=== PATIENT | female | born 1955 | race Caucasian/White ===

== ENCOUNTER 2017-12-28 13:51 | Inpatient (IN) | payer OTHER ==
[~2017-12-28] VITALS: Ht 162.6 cm; Wt 137.8 kg
[2017-12-28] VITALS (10 sets, daily range): BP systolic 134–174; BP diastolic 52–134; PULSE 58–82; TEMP 36.6–36.9; O2SAT 81–100; Ht 162.6 cm; Wt 137.8 kg
[2017-12-28] MEDS ORDERED: ALBUT/IPRATROP 3MG/0.5MG NEB 3 ML VIAL INH ONE (14:15)
[2017-12-28] MEDS ORDERED: ASPI1TAB83 PO (14:24)
[2017-12-28] MEDS ORDERED: FRS/40 PO (14:24)
[2017-12-28] MEDS ORDERED: GLC/500 PO (14:24)
[2017-12-28] MEDS ORDERED: DLCSR180 PO (14:24)
[2017-12-28] MEDS ORDERED: IPRA1AER2 INH (14:24)
[2017-12-28] MEDS ORDERED: ASPI-435 (14:24)
--- NOTE | 2017-12-28 14:57 | DIAGNOSTIC IMAGING REPORT ---
R KNEE 1 OR 2 VIEWS ROUTINE CLINICAL HISTORY: Pt c/o Rt knee pain pain COMPARISON: None. DISCUSSION: Minimal degenerative change of all major joint compartments. No evidence for acute bony pathology. Cortical margins are intact. There is no evidence for soft tissue swelling. IMPRESSION: Minimal degenerative change. No acute bony antibody. The above report was generated using voice recognition software. It may contain grammatical, syntax or spelling errors. Electronically signed by: Jony Negro M.D. 12/28/2017 2:56 PM Dictated Date/Time: 12/28/2017 2:55 PM
--- NOTE | 2017-12-28 14:57 | DIAGNOSTIC IMAGING REPORT ---
CHEST ONE VIEW PORTABLE CLINICAL HISTORY: Shortness of breath COMPARISON STUDY: No previous studies for comparison. FINDINGS: The heart is enlarged. There is mild pulmonary vascular congestion. Pulmonary vasculature may be accentuated due to the patient's large body habitus. There is no lobar consolidation. There are no significant pleural effusions.[ IMPRESSION: Cardiomegaly and radiographic evidence of mild pulmonary vascular congestion. Electronically signed by: Bong Metz M.D. 12/28/2017 2:55 PM Dictated Date/Time: 12/28/2017 2:55 PM
--- NOTE | 2017-12-28 15:00 | DIAGNOSTIC IMAGING REPORT ---
RIGHT SHOULDER 3 VIEWS HISTORY: Pt c/o Rt shoulder pain COMPARISON: None. FINDINGS: There is no fracture or dislocation. Soft tissues are unremarkable. Small calcification at the distal supraspinatus tendon. The clavicle is intact. Mild AC joint arthrosis. IMPRESSION: No fracture or dislocation within the right shoulder. Supraspinatus calcific tendinitis. Electronically signed by: Aguilar Metz M.D. 12/28/2017 2:59 PM Dictated Date/Time: 12/28/2017 2:52 PM
[2017-12-28 15:09] LABS: ALBUMIN 3.4 gm/dl (3.4-5.0); CALCIUM 9.2 mg/dl (8.5-10.1); CREATININE 0.5 mg/dl (0.60-1.20); POTASSIUM 3.8 mmol/L (3.5-5.1)
--- NOTE | 2017-12-28 15:11 | EMERGENCY ROOM VISIT NOTE ---
History Report prepared by Melquiades: Christine Figueroa Under the Supervision of: Dr. Cristhian Meyer M.D. First contact with patient: 13:52 Chief Complaint: FALL Stated Complaint: CONFUSION/TREMORS/STOMACH ISSUES/ANXIETY History of Present Illness The patient is a 62 year old female who presents to the Emergency Room with complaints of persistent right shoulder and knee pain secondary to a fall that occurred prior to arrival. The patient was brought in by EMS. While talking to EMS and nursing staff, the patient stated that she is a smoker and has a history of COPD. The patient is on 2.5 liters of oxygen at home. Currently, she has an oxygen saturation of 80 and requires 5 liters of oxygen. The patient is also complaining of tremors. Source of History: patient, EMS, nursing staff History Limited By: AMS Onset: prior to arrival Position: shoulder (right), knee (right) Quality: other (right shoulder and right knee pain) Timing: other (persistent) Note: Associated symptoms includes: tremors Review of Systems See HPI for pertinent positives & negatives. A total of 10 systems reviewed and were otherwise negative. Past Medical & Surgical Medical Problems: (1) Acute and chronic respiratory failure with hypoxia (2) COPD (chronic obstructive pulmonary disease) Family History Patient reports no known family medical history. Limited due to patient's altered mental status. Social History Smoking Status: Current Every Day Smoker Smokeless Tobacco Use: Unknown Alcohol Use: none Limited due to patient's altered mental status. Current/Historical Medications Scheduled Aspirin (Aspirin), 81 MG PO DAILY Diltiazem HCl (Diltiazem HCl ER), 180 MG PO DAILY Furosemide (Lasix), 40 MG PO BID Ipratropium-Albuterol (Combivent Respimat), 1 PUFFS INH UD Metformin Hcl (Glucophage), 500 MG PO BID Miscellaneous Medications Aspirin (Aspirin 81) Allergies Coded Allergies: Amoxicillin (Unverified Allergy, Intermediate, HIVES, 12/28/17) BEE STING (Unverified Allergy, Mild, 12/28/17) Physical Exam Vital Signs Date Time Temp Pulse Resp B/P (MAP) Pulse Ox O2 Delivery O2 Flow Rate FiO2 12/28/17 16:23 66 100 60 12/28/17 15:53 68 17 147/67 100 Nebulizer 8.0 12/28/17 15:33 66 24 117/51 93 Nebulizer 8.0 12/28/17 14:35 67 18 94 Nasal Cannula 4.0 12/28/17 14:14 90 Nasal Cannula 4.0 12/28/17 14:00 75 12/28/17 13:53 37.3 75 16 180/83 80 Nasal Cannula 4.0 Physical Exam GENERAL: Awake, alert, well-appearing, in no acute distress HENT: Normocephalic, atraumatic. Oropharynx unremarkable. EYES: Normal conjunctiva. Sclera non-icteric. NECK: Supple. No nuchal rigidity. FROM. No JVD. RESPIRATORY: Lung sounds are distant. CARDIAC: Regular rate, normal rhythm. Extremities warm and well perfused. Pulses equal. ABDOMEN: Morbidly obese. Soft, non-distended. No tenderness to palpation. No rebound or guarding. No masses. RECTAL: Deferred. MUSCULOSKELETAL: Chest examination reveals no tenderness. The back is symmetrical on inspection without obvious abnormality. There is no CVA tenderness to palpation. No joint edema. LOWER EXTREMITIES: Chronic venous stasis changes bilateral to legs.Calves are equal size bilaterally and non-tender. No discoloration. NEURO: Normal sensorium. No sensory or motor deficits noted. SKIN: No rash or jaundice noted. Medical Decision & Procedures ER Provider Diagnostic Interpretation: Radiology results as stated below per my review and radiologist interpretation: CHEST ONE VIEW PORTABLE CLINICAL HISTORY: Shortness of breath COMPARISON STUDY: No previous studies for comparison. FINDINGS: The heart is enlarged. There is mild pulmonary vascular congestion. Pulmonary vasculature may be accentuated due to the patient's large body habitus. There is no lobar consolidation. There are no significant pleural effusions.[ IMPRESSION: Cardiomegaly and radiographic evidence of mild pulmonary vascular congestion. Electronically signed by: Bong Metz M.D. 12/28/2017 2:55 PM Dictated Date/Time: 12/28/2017 2:55 PM R KNEE 1 OR 2 VIEWS ROUTINE CLINICAL HISTORY: Pt c/o Rt knee pain pain COMPARISON: None. DISCUSSION: Minimal degenerative change of all major joint compartments. No evidence for acute bony pathology. Cortical margins are intact. There is no evidence for soft tissue swelling. IMPRESSION: Minimal degenerative change. No acute bony antibody. The above report was generated using voice recognition software. It may contain grammatical, syntax or spelling errors. Electronically signed by: Jony Negro M.D. 12/28/2017 2:56 PM Dictated Date/Time: 12/28/2017 2:55 PM RIGHT SHOULDER 3 VIEWS HISTORY: Pt c/o Rt shoulder pain COMPARISON: None. FINDINGS: There is no fracture or dislocation. Soft tissues are unremarkable. Small calcification at the distal supraspinatus tendon. The clavicle is intact. Mild AC joint arthrosis. IMPRESSION: No fracture or dislocation within the right shoulder. Supraspinatus calcific tendinitis. Electronically signed by: Aguilar Metz M.D. 12/28/2017 2:59 PM Dictated Date/Time: 12/28/2017 2:52 PM HEAD WITHOUT CONTRAST (CT) CLINICAL HISTORY: 62 years-old Female with Pt c/o fall. Acute head injury status post fall TECHNIQUE: Multiple axial CT images of the head were obtained without contrast. A dose lowering technique was utilized adhering to the principles of ALARA. CT DOSE: 3008.64 mGycm COMPARISON: CT head and brain MRI 08/28/2008. FINDINGS: Motion degraded exam. No acute intracranial hemorrhage, midline shift, intracranial mass, hydrocephalus, territorial ischemia or abnormal extra-axial collection. Calcifications of the falx cerebri are noted. Increased attenuation adjacent to peripheral left frontal lobe near the vertex as seen on images 25 and 26 of the axial series suggests artifact. The calvarium is intact. Mild polypoid mucosal thickening of the left maxillary sinus with mild ethmoid sinus disease. IMPRESSION: Motion degraded exam without acute intracranial abnormality or calvarial fracture. The above report was generated using voice recognition software. It may contain grammatical, syntax or spelling errors. Electronically signed by: Stan Galvan M.D. 12/28/2017 3:21 PM Dictated Date/Time: 12/28/2017 3:17 PM Laboratory Results 12/28/17 14:31 Red Blood Count 4.39, Mean Corpuscular Volume 104.6, Mean Corpuscular Hemoglobin 28.9, Mean Corpuscular Hemoglobin Concent 27.7, Mean Platelet Volume 12.6, Neutrophils (%) (Auto) 76.9, Lymphocytes (%) (Auto) 12.8, Monocytes (%) ( Auto) 9.0, Eosinophils (%) (Auto) 0.5, Basophils (%) (Auto) 0.3, Neutrophils # ( Auto) 5.67, Lymphocytes # (Auto) 0.94, Monocytes # (Auto) 0.66, Eosinophils # ( Auto) 0.04, Basophils # (Auto) 0.02 12/28/17 14:31 Test 12/28/17 13:55 12/28/17 14:31 12/28/17 16:09 Urine Color YELLOW Urine Appearance SL CLOUDY (CLEAR) Urine pH 6.5 (4.5-7.5) Urine Specific Cowen 1.015 (1.000-1.030) Urine Protein 1+ (NEG) Urine Glucose (UA) NEG (NEG) Urine Ketones NEG (NEG) Urine Occult Blood TRACE (NEG) Urine Nitrite POS (NEG) Urine Bilirubin NEG (NEG) Urine Urobilinogen NEG (NEG) Urine Leukocyte Esterase NEG (NEG) Urine RBC 0-4 /hpf (0-4) Urine WBC 10-30 /hpf (0-5) Urine Epithelial Cells 5-10 /lpf (0-5) Urine Bacteria 4+ (NEG) Urine Opiates Screen NEG (NEG) Urine Methadone, Qualitative NEG (NEG) Urine Barbiturates NEG (NEG) Urine Phencyclidine (PCP) Level NEG (NEG) Ur Amphetamine/Methamphetamine NEG (NEG) MDMA (Ecstasy) Screen NEG (NEG) Urine Benzodiazepines Screen NEG (NEG) Urine Cocaine Metabolite NEG (NEG) Urine Marijuana (THC) NEG (NEG) White Blood Count 7.37 K/uL (4.8-10.8) Red Blood Count 4.39 M/uL (4.2-5.4) Hemoglobin 12.7 g/dL (12.0-16.0) Hematocrit 45.9 % (37-47) Mean Corpuscular Volume 104.6 fL (80-100) Mean Corpuscular Hemoglobin 28.9 pg (25-34) Mean Corpuscular Hemoglobin Concent 27.7 g/dl (32-36) Platelet Count 141 K/uL (130-400) Mean Platelet Volume 12.6 fL (7.4-10.4) Neutrophils (%) (Auto) 76.9 % Lymphocytes (%) (Auto) 12.8 % Monocytes (%) (Auto) 9.0 % Eosinophils (%) (Auto) 0.5 % Basophils (%) (Auto) 0.3 % Neutrophils # (Auto) 5.67 K/uL (1.4-6.5) Lymphocytes # (Auto) 0.94 K/uL (1.2-3.4) Monocytes # (Auto) 0.66 K/uL (0.11-0.59) Eosinophils # (Auto) 0.04 K/uL (0-0.5) Basophils # (Auto) 0.02 K/uL (0-0.2) RDW Standard Deviation 57.1 fL (36.4-46.3) RDW Coefficient of Variation 14.8 % (11.5-14.5) Immature Granulocyte % (Auto) 0.5 % Immature Granulocyte # (Auto) 0.04 K/uL (0.00-0.02) Anion Gap -2.0 mmol/L (3-11) Est Creatinine Clear Calc Drug Dose 171.0 ml/min Estimated GFR () 119.4 Estimated GFR (Non- 103.0 BUN/Creatinine Ratio 26.0 (10-20) Calcium Level 9.2 mg/dl (8.5-10.1) Total Bilirubin 0.5 mg/dl (0.2-1) Aspartate Amino Transf (AST/SGOT) 47 U/L (15-37) Alanine Aminotransferase (ALT/SGPT) 110 U/L (12-78) Alkaline Phosphatase 32 U/L (45-117) Total Creatine Kinase 81 U/L (26-192) Creatine Kinase MB 6.3 ng/ml (0.5-3.6) Creatine Kinase MB Ratio 7.8 (0-3.0) Troponin I 0.028 ng/ml (0-0.045) Pro-B-Type Natriuretic Peptide 1100 pg/ml (0-900) Total Protein 6.6 gm/dl (6.4-8.2) Albumin 3.4 gm/dl (3.4-5.0) Globulin 3.2 gm/dl (2.5-4.0) Albumin/Globulin Ratio 1.1 (0.9-2) Arterial Blood pH 7.22 (7.35-7.45) Arterial Blood Partial Pressure CO2 135 mmHg (35-46) Arterial Blood Partial Pressure O2 164 mm/Hg (80-95) Arterial Blood HCO3 54 mmol/L (19-24) Arterial Blood Oxygen Saturation 98.7 % (90-95) Arterial Blood Base Excess 20.4 mEq/L (-9-1.8) Arterial Blood Gas Delivery 100% BIPAP Daniel Test POS (POS) Labs reviewed by ED physician. Medications Administered Medications (Trade) Dose Ordered Sig/Yaya Route Start Time Stop Time Status Last Admin Dose Admin Albuterol/ Ipratropium (Duoneb) 12 ml ONE ONCE INH 12/28/17 14:15 12/28/17 14:16 DC 12/28/17 14:34 12 ML Methylprednisolone Sodium Succinate (Solu-Medrol IV) 60 mg NOW STAT IV 12/28/17 15:25 12/28/17 15:26 DC 12/28/17 15:40 60 MG Magnesium Sulfate (Magnesium Sulfate 1gm / D5W) 1 gm NOW STAT IV 12/28/17 15:45 12/28/17 15:47 DC 12/28/17 15:51 1 GM ECG Per My Interpretation Indication: SOB/dyspnea Rate (beats per minute): 64 Rhythm: atrial fibrillation Findings: other (no ST elevations or depression. ) ED Course 1405: Past medical records reviewed. The patient was evaluated in room C5. A complete history and physical examination was performed. 1415: Ordered Duoneb 12ml INH. 1525: Ordered Solu-Medrol IV 60mg IV. 1545: I reevaluated the patient, who is feeling somewhat better. Ordered Magnesium Sulfate 1gm IV. 1600: Ordered Ioversol 100ml IV. 1602: I discussed the patient's case with Meghan Horton PA-C. She has agreed to evaluate the patient for further management and care. 1604: Reevaluated the patient and updated her on the test findings and treatment plan. She verbalized complete agreement and understanding. Medical Decision Differential diagnosis: Etiologies such as infections, reactive airway disease, pneumonia, pneumothorax , COPD, CHF, cardiac ischemia, pulmonary embolism, musculoskeletal, gastrointestinal, as well as others were entertained. This is a 62-year-old female who presents the emergency department with increasing confusion that has been ongoing for the past several days. Patient reports she fell at home today was unable to get up. Upon arrival to the emergency department the patient is on 2.5 L of oxygen and is hypoxic. Her oxygen was initially bumped up to 4 L via nasal cannula. She was then placed on a breathing treatment. I am concerned that the patient keeps falling asleep and her CO2 is reflective of this. For this reason the patient was placed on BiPAP and magnesium and Solu-Medrol were started. I did discuss the case with the p d driver. An ABG was obtained. I also discussed the case with the hospitalist who agreed to admit the patient. Patient and family were in agreement with the treatment plan. Medication Reconcilliation Current Medication List: was personally reviewed by me Blood Pressure Screening Patient's blood pressure: Normal blood pressure Blood pressure disposition: Did not require urgent referral Consults Time Called: 1602 Consulting Physician: Meghan Horton PA-C Returned Call: 1602 I discussed the patient's case with Meghan Horton PA-C. She has agreed to evaluate the patient for further management and care. Impression Primary Impression: Acute and chronic respiratory failure with hypoxia Additional Impression: Fall Critical Care I have personally spent greater than 30 minutes of critical care time in the direct management of this patient. This includes bedside care, interpretation of diagnostic studies, and testing, discussion with consultants, patient, and family members, and other required patient management activities. This 30 minutes is in excess of all separately billable procedures. Scribe Attestation The scribe's documentation has been prepared under my direction and personally reviewed by me in its entirety. I confirm that the note above accurately reflects all work, treatment, procedures, and medical decision making performed by me. Departure Information Dispostion Being Evaluated By Hospitalist Referrals No Doctor, Assigned (PCP) Forms HOME CARE DOCUMENTATION FORM, IMPORTANT VISIT INFORMATION Patient Instructions [facility] Problem Qualifiers Additional Impression: Fall Encounter type: initial encounter Qualified Codes: W19.XXXA - Unspecified fall, initial encounter
[2017-12-28 15:14] LABS: CKMB 6.3 ng/ml (0.5-3.6); TOTAL PROTEIN 6.6 gm/dl (6.4-8.2)
--- NOTE | 2017-12-28 15:22 | DIAGNOSTIC IMAGING REPORT ---
HEAD WITHOUT CONTRAST (CT) CLINICAL HISTORY: 62 years-old Female with Pt c/o fall. Acute head injury status post fall TECHNIQUE: Multiple axial CT images of the head were obtained without contrast. A dose lowering technique was utilized adhering to the principles of ALARA. CT DOSE: 3008.64 mGycm COMPARISON: CT head and brain MRI 08/28/2008. FINDINGS: Motion degraded exam. No acute intracranial hemorrhage, midline shift, intracranial mass, hydrocephalus, territorial ischemia or abnormal extra-axial collection. Calcifications of the falx cerebri are noted. Increased attenuation adjacent to peripheral left frontal lobe near the vertex as seen on images 25 and 26 of the axial series suggests artifact. The calvarium is intact. Mild polypoid mucosal thickening of the left maxillary sinus with mild ethmoid sinus disease. IMPRESSION: Motion degraded exam without acute intracranial abnormality or calvarial fracture. The above report was generated using voice recognition software. It may contain grammatical, syntax or spelling errors. Electronically signed by: Stan Galvan M.D. 12/28/2017 3:21 PM Dictated Date/Time: 12/28/2017 3:17 PM
[2017-12-28] MEDS ORDERED: METHYLPREDNISOLONE 125 MG VIAL IV STA (15:25)
[2017-12-28 15:40] LABS: BASO % 0.3 %; BASO ABS # 0.02 K/uL (0-0.2); EOS % 0.5 %; EOS ABS # 0.04 K/uL (0-0.5); HEMATOCRIT 45.9 % (37-47); HEMOGLOBIN 12.7 g/dL (12.0-16.0); IG# 0.04 K/uL (0.00-0.02); LYMPH % 12.8 %; LYMPH ABS # 0.94 K/uL (1.2-3.4); MEAN CELL VOLUME 104.6 fL (80-100); MEAN CORPUSCULAR HEMOGLOBIN 28.9 pg (25-34); MEAN CORPUSCULAR HGB CONC 27.7 g/dl (32-36); MEAN PLATELET VOLUME 12.6 fL (7.4-10.4); MONO ABS # 0.66 K/uL (0.11-0.59); NEUT % 76.9 %; NEUT ABS # 5.67 K/uL (1.4-6.5); PLATELET COUNT 141 K/uL (130-400); RED CELL DISTRIBUTION WIDTH CV 14.8 % (11.5-14.5); RED CELL DISTRIBUTION WIDTH SD 57.1 fL (36.4-46.3); WHITE BLOOD COUNT 7.37 K/uL (4.8-10.8)
[2017-12-28] MEDS ORDERED: MAGNESIUM SULFATE 1GM / D5W 1 GM BAG IV STA (15:45)
[2017-12-28] MEDS ORDERED: OPTIRAY 320 IV PRN (16:00)
--- NOTE | 2017-12-28 16:44 | History and Physical ---
History & Physical Date & Time of Service: Dec 28, 2017 at 16:44 Chief Complaint: Confusion/Tremors/Stomach Issues/Anxiety Primary Care Physician: No Doctor, Assigned History of Present Illness Source: hospital records, other (Discussion with ED Provider - Dr. Meyer) Ms. Torres is a 62 y/o female with PMHx of T2DM, COPD, and Cardiovascular Conditions (HTN?) who presents to the ED by BLS for a fall 2/2 SOB that occurred earlier today. HPI solely obtained from ED note and ED provider. No previous admissions and no outpatient notes in [employer] and marked as unassigned. It appears patient presented by BLS with c/o R shoulder and knee pain after a fall. Fall is reported to be caused by her SOB. She has a history of COPD and utilizes 2.5 L NC continuously. Upon arrival she was 80% with 4 L NC. Reported tremors as well that may be acute vs chronic. Reporting some progressive confusion over the past couple days. Medications listed in system cannot be confirmed but suggests she is a diabetic, possibly HTN, possibly CHF? No tests in system to review. Patient is currently on BiPAP and moans and somewhat opens eyes to sternal rub. Past Medical/Surgical History Medical Problems: (1) Acute and chronic respiratory failure with hypoxia Family History FMHx cannot be obtained 2/2 being obtunded Social History Smoking Status: Current Every Day Smoker Allergies Coded Allergies: Amoxicillin (Unverified Allergy, Intermediate, HIVES, 12/28/17) BEE STING (Unverified Allergy, Mild, 12/28/17) Home Medications Scheduled Aspirin (Aspirin), 81 MG PO DAILY Diltiazem HCl (Diltiazem HCl ER), 180 MG PO DAILY Furosemide (Lasix), 40 MG PO BID Ipratropium-Albuterol (Combivent Respimat), 1 PUFFS INH UD Metformin Hcl (Glucophage), 500 MG PO BID Miscellaneous Medications Aspirin (Aspirin 81) Review of Systems ROS cannot be obtained 2/2 being obtunded Physical Exam Vital Signs Date Time Temp Pulse Resp B/P (MAP) Pulse Ox O2 Delivery O2 Flow Rate FiO2 12/28/17 16:23 66 100 60 12/28/17 15:53 68 17 147/67 100 Nebulizer 8.0 12/28/17 15:33 66 24 117/51 93 Nebulizer 8.0 12/28/17 14:35 67 18 94 Nasal Cannula 4.0 12/28/17 14:14 90 Nasal Cannula 4.0 12/28/17 14:00 75 12/28/17 13:53 37.3 75 16 180/83 80 Nasal Cannula 4.0 General Appearance: no apparent distress, + obese Head: normocephalic, atraumatic Neck: supple, no JVD, trachea midline Respiratory/Chest: + respiratory distress (on Bipap), + decreased breath sounds Cardiovascular: regular rate, rhythm, no gallop, no murmur, + pertinent finding (however heart sounds are distant) Abdomen/GI: normal bowel sounds, non tender (no grimacing with palpation), soft Extremities/Musculoskelatal: + swelling (1+ pitting edema b/l legs) Neurologic/Psych: + pertinent finding (obtunded) Skin: normal color, warm/dry Diagnostics Laboratory Results Results Past 24 Hours Test 12/28/17 13:55 12/28/17 14:31 12/28/17 16:09 Range/Units Urine Color YELLOW Urine Appearance SL CLOUDY CLEAR Urine pH 6.5 4.5-7.5 Urine Specific [place] 1.015 1.000-1.030 Urine Protein 1+ NEG Urine Glucose (UA) NEG NEG Urine Ketones NEG NEG Urine Occult Blood TRACE NEG Urine Nitrite POS NEG Urine Bilirubin NEG NEG Urine Urobilinogen NEG NEG Urine Leukocyte Esterase NEG NEG Urine RBC 0-4 0-4 /hpf Urine WBC 10-30 0-5 /hpf Urine Epithelial Cells 5-10 0-5 /lpf Urine Bacteria 4+ NEG White Blood Count 7.37 4.8-10.8 K/uL Red Blood Count 4.39 4.2-5.4 M/uL Hemoglobin 12.7 12.0-16.0 g/dL Hematocrit 45.9 37-47 % Mean Corpuscular Volume 104.6 80-100 fL Mean Corpuscular Hemoglobin 28.9 25-34 pg Mean Corpuscular Hemoglobin Concent 27.7 32-36 g/dl Platelet Count 141 130-400 K/uL Mean Platelet Volume 12.6 7.4-10.4 fL Neutrophils (%) (Auto) 76.9 % Lymphocytes (%) (Auto) 12.8 % Monocytes (%) (Auto) 9.0 % Eosinophils (%) (Auto) 0.5 % Basophils (%) (Auto) 0.3 % Neutrophils # (Auto) 5.67 1.4-6.5 K/uL Lymphocytes # (Auto) 0.94 1.2-3.4 K/uL Monocytes # (Auto) 0.66 0.11-0.59 K/uL Eosinophils # (Auto) 0.04 0-0.5 K/uL Basophils # (Auto) 0.02 0-0.2 K/uL RDW Standard Deviation 57.1 36.4-46.3 fL RDW Coefficient of Variation 14.8 11.5-14.5 % Immature Granulocyte % (Auto) 0.5 % Immature Granulocyte # (Auto) 0.04 0.00-0.02 K/uL Sodium Level 138 136-145 mmol/L Potassium Level 3.8 3.5-5.1 mmol/L Chloride Level 87 98-107 mmol/L Carbon Dioxide Level 53 21-32 mmol/L Anion Gap -2.0 3-11 mmol/L Blood Urea Nitrogen 13 7-18 mg/dl Creatinine 0.50 0.60-1.20 mg/dl Est Creatinine Clear Calc Drug Dose 171.0 ml/min Estimated GFR () 119.4 Estimated GFR (Non- 103.0 BUN/Creatinine Ratio 26.0 10-20 Random Glucose 95 70-99 mg/dl Calcium Level 9.2 8.5-10.1 mg/dl Total Bilirubin 0.5 0.2-1 mg/dl Aspartate Amino Transf (AST/SGOT) 47 15-37 U/L Alanine Aminotransferase (ALT/SGPT) 110 12-78 U/L Alkaline Phosphatase 32 45-117 U/L Total Creatine Kinase 81 26-192 U/L Creatine Kinase MB 6.3 0.5-3.6 ng/ml Creatine Kinase MB Ratio 7.8 0-3.0 Troponin I 0.028 0-0.045 ng/ml Pro-B-Type Natriuretic Peptide 1100 0-900 pg/ml Total Protein 6.6 6.4-8.2 gm/dl Albumin 3.4 3.4-5.0 gm/dl Globulin 3.2 2.5-4.0 gm/dl Albumin/Globulin Ratio 1.1 0.9-2 Arterial Blood pH 7.22 7.35-7.45 Arterial Blood Partial Pressure CO2 135 35-46 mmHg Arterial Blood Partial Pressure O2 164 80-95 mm/Hg Arterial Blood HCO3 54 19-24 mmol/L Arterial Blood Oxygen Saturation 98.7 90-95 % Arterial Blood Base Excess 20.4 -9-1.8 mEq/L Arterial Blood Gas Delivery 100% BIPAP Daniel Test POS POS Microbiology Results 12/28/17 Urine Culture, Received Pending Diagnostic Radiology RIGHT SHOULDER 3 VIEWS FINDINGS: There is no fracture or dislocation. Soft tissues are unremarkable. Small calcification at the distal supraspinatus tendon. The clavicle is intact. Mild AC joint arthrosis. IMPRESSION: No fracture or dislocation within the right shoulder. Supraspinatus calcific tendinitis. R KNEE 1 OR 2 VIEWS ROUTINE DISCUSSION: Minimal degenerative change of all major joint compartments. No evidence for acute bony pathology. Cortical margins are intact. There is no evidence for soft tissue swelling. IMPRESSION: Minimal degenerative change. No acute bony antibody. HEAD WITHOUT CONTRAST (CT) FINDINGS: Motion degraded exam. No acute intracranial hemorrhage, midline shift, intracranial mass, hydrocephalus, territorial ischemia or abnormal extra-axial collection. Calcifications of the falx cerebri are noted. Increased attenuation adjacent to peripheral left frontal lobe near the vertex as seen on images 25 and 26 of the axial series suggests artifact. The calvarium is intact. Mild polypoid mucosal thickening of the left maxillary sinus with mild ethmoid sinus disease. IMPRESSION: Motion degraded exam without acute intracranial abnormality or calvarial fracture. CHEST ONE VIEW PORTABLE FINDINGS: The heart is enlarged. There is mild pulmonary vascular congestion. Pulmonary vasculature may be accentuated due to the patient's large body habitus. There is no lobar consolidation. There are no significant pleural effusions.[ IMPRESSION: Cardiomegaly and radiographic evidence of mild pulmonary vascular congestion EKG Poor data quality, interpretation may be adversely affected Probable Sinus rhythm Nonspecific T wave abnormality Abnormal ECG When compared with ECG of 28-AUG-2008 12:46, Artifact is now present Confirmed by JUAN WISDOM ([id number]) on 12/28/2017 4:37:38 PM Impression Assessment and Plan Ms. Torres is a 62 y/o female with PMHx of T2DM, COPD, and Cardiovascular Conditions (HTN?) who presents to the ED by BLS for a fall 2/2 SOB that occurred earlier today. HPI solely obtained from ED note and ED provider Metabolic Encephalopathy 2/2 Likely Hypoxia vs Other - Appears she was A&O upon arrival however during my assessment she is minimally responsive. Requiring BiPAP - Appears to possibly have a UTI but afebrile and without leukocytosis at this time; will obtain drug screen to r/o as possible cause - Could consider implemeting Levaquin as this could cover urine source as well as coverage for respiratory Acute on Chronic Respiratory Failure with Hypoxia and Respiratory Acidosis: Baseline 2.5 L NC - ABG reveals a compensating respiratory acidosis - Received Solu-Medrol and Duoneb in ED and is currently on BiPAP - CXR with mild pulmonary vascular congestion with CTA to R/O PE pending - Consult intensivists - discussed with Dr. Honeycutt - possibl need for intubation pending improvement in NIV support COPD Possible Exacerbation vs Obesity Hypoventilation Syndrome vs Mild CHF vs Mixed: - Hard to fully assess lung exam as she largely sounds diminished but cannot follow commands - Patient is morbidly obese and would suspect this is contributing to some extent of today's presentation - Will initiate Solu-Medrol 60 mg IV q8H and Levaquin 500 mg daily; Duonebs BLAKE - can be adjusted as deemed fit but ICU team T2DM: - Hold Metformin and cover with SSI HTN: - Unsure of her actual medications and no pharamacy listed - Continue to monitor Code Status: FULL RESUSCITATION - Cannot be Obtained Disposition: - Acutely ill - unsure of needs on D/C CCT of 60 minutes. This includes review of chart and attempts at outpatient review, discussion with ED and intensivists, evaluation of patient, intervention , and documentation. Resident Physician Supervision Note: I was present with Meghan BUCKNER during the history and exam. I discussed the case with the PA and agree with the findings and plan as documented in the note. Any exceptions or clarifications are listed here: 62 y/o F Hx obesity hypoventilation, COPD, DM, HTN - presented initially with SOB - resp status deteriorated on arrival to the ER requiring BiPAP - pt was poorly responsive for a period - significant hypercarbia and mild hypoxia noted on ABG - she had been exhibiting some improvement upon transfer to the ICU. OE Somnolent, morbidly obese female - appears mildly distressed S1,2 R faint Lung exam is limited due to lrg air noises and habitus - no audible crackles NT, ND + 3+ edema BL - stasis changes of LEs Poorly responsive om admission - moves all extrems P: Placed on BiPAP for transfer to ICU Will treat for presumed COPD exacerbation wit Nebs, steroids Will consider intubation if ABG/mentation does not improve with BiPAP Pt's volume status is not clear - we would also consider diuresis without improvement with resp modalities alone Discussed with ER attending and Supervisor Documented By: Rolando Hill Resuscitation Status VTE Prophylaxis Will order VTE Prophylaxis: Yes Note Total Time: Critical Care 30 - 74 minutes
[2017-12-28] MEDS ORDERED: GLUCOSE 40% GEL 15 GM TUBE PO PRN (16:45)
[2017-12-28] MEDS ORDERED: DEXTROSE 50% 50 ML SYR IV PRN (16:45)
[2017-12-28] MEDS ORDERED: GLUCOSE 10 TABS/TUBE PO PRN (16:45)
[2017-12-28] MEDS ORDERED: ICU PROTOCOL FOR HYPERGLYCEMIA PRN (16:45)
[2017-12-28] MEDS ORDERED: GLUCAGON FOR INJ 1 MG VIAL SQ PRN (16:45)
--- NOTE | 2017-12-28 18:36 | Critical Care Consultation ---
Critical Care Consultation Date of Consultation: Dec 28, 2017. Attending Physician: Rolando Hill M.D. Reason for Consultation: Acute on chronic hypercapnic respiratory failure History of Present Illness Dear Meghan: Thank you for your kind referral of Mrs. Torres to critical care service. This is 62-year-old female with history of morbid obesity, obesity hypoventilation syndrome, COPD, diabetes, hypertension, has been lately having tremor and she did sustain a fall at home presented to our institution after she fell. In the ED the patient was found to be dozing and confused, the patient underwent a workup which revealed sodium bicarb of 53 and had an ABG drawn which showed PCO2 of 135. Her pH however maintained at 7.22. The patient apparently has been taken also diuretics at home. The patient brought to the ICU due to acute on chronic hypercapnic respiratory failure. When I interviewed the patient, she was barely arousable but she was able to open her eyes answer questions however she goes back to sleep again. I kept her on the BiPAP at that time and decrease her FiO2 to 30% only and keep her O2 sat in the range of 85%. The patient is definitely chronic retainer of CO2. The review of system was not obtainable on this patient. In review of her data the patient noted to have pulmonary vascular congestion also on the chest x- ray. I could not appreciate any intracranial catastrophe on the head CT that was done on admission. Social History Smoking Status: Current Every Day Smoker Allergies Coded Allergies: Amoxicillin (Unverified Allergy, Intermediate, HIVES, 12/28/17) BEE STING (Unverified Allergy, Mild, 12/28/17) Home Medications Scheduled Aspirin (Aspirin), 81 MG PO DAILY Diltiazem HCl (Diltiazem HCl ER), 180 MG PO DAILY Furosemide (Lasix), 40 MG PO BID Ipratropium-Albuterol (Combivent Respimat), 1 PUFFS INH UD Metformin Hcl (Glucophage), 500 MG PO BID Miscellaneous Medications Aspirin (Aspirin 81) Current Inpatient Medications Current Inpatient Medications Medications (Trade) Dose Ordered Sig/Yaya Route Start Time Stop Time Status Last Admin Dose Admin Ioversol (Optiray 320) 100 ml UD PRN IV 12/28/17 16:00 01/01/18 15:59 Miscellaneous Information (Icu Protocol For Hyperglycemia) 1 ea PRN PRN N/A 4/18/18 16:45 12/30/17 16:44 Insulin Aspart (novoLOG ASPART) SLIDING SCALE If C... ACHS SC 12/28/17 21:00 01/27/18 20:59 Glucose (Glucose 40% Gel) 15-30 GRAMS 15 GRAMS... UD PRN PO 12/28/17 16:45 01/27/18 16:44 Glucose (Glucose Chew Tab) 4-8 Tablets 4 Tabl... UD PRN PO 12/28/17 16:45 01/27/18 16:44 Dextrose (Dextrose 50% 50ML Syringe) 25-50ML OF 50% DW IV FOR... UD PRN IV 12/28/17 16:45 01/27/18 16:44 Glucagon (Glucagon Inj) 1 mg UD PRN SQ 12/28/17 16:45 01/27/18 16:44 Albuterol/ Ipratropium (Duoneb) 3 ml Q6R NEB 12/28/17 21:00 01/27/18 20:59 Methylprednisolone Sodium Succinate 60 mg/Syringe 0.96 ml @ 1.5 mls/min Q8H IV 12/28/17 22:00 01/27/18 21:59 Levofloxacin 500 mg/Prmx 100 ml @ 100 mls/hr Q24H IV 12/28/17 18:30 01/02/18 18:29 Review of Systems Review of system was not obtainable, the patient was complaining of pain but without any specific area. Due to her somnolence I could not obtain a full review of system. Physical Exam Date Time Temp Pulse Resp B/P (MAP) Pulse Ox O2 Delivery O2 Flow Rate FiO2 12/28/17 18:13 82 17 147/67 98 12/28/17 18:12 82 94 60 12/28/17 17:03 68 12/28/17 16:23 66 100 60 12/28/17 15:53 68 17 147/67 100 Nebulizer 8.0 12/28/17 15:33 66 24 117/51 93 Nebulizer 8.0 12/28/17 14:35 67 18 94 Nasal Cannula 4.0 12/28/17 14:14 90 Nasal Cannula 4.0 12/28/17 14:00 75 12/28/17 13:53 37.3 75 16 180/83 80 Nasal Cannula 4.0 General Appearance: no apparent distress Eyes: PERRLA ENT: normal throat exam Neck: trachea midline, no stridor Respiratory: other (Distant and diminished breath sounds.) Cardiovasular: regular rate/rhythm, normal S1S2, no M/G/R, no murmur, other ( Slightly bradycardic.) Abdomen: non tender, no masses Upper Extremities: edema Neuro: lethargic Psychiatric: other (Cannot be assessed) Laboratory Results Last 24 Hours Test 12/28/17 13:55 12/28/17 14:31 12/28/17 16:09 Urine Color YELLOW Urine Appearance SL CLOUDY Urine pH 6.5 Urine Specific [place] 1.015 Urine Protein 1+ Urine Glucose (UA) NEG Urine Ketones NEG Urine Occult Blood TRACE Urine Nitrite POS Urine Bilirubin NEG Urine Urobilinogen NEG Urine Leukocyte Esterase NEG Urine RBC 0-4 /hpf Urine WBC 10-30 /hpf Urine Epithelial Cells 5-10 /lpf Urine Bacteria 4+ White Blood Count 7.37 K/uL Red Blood Count 4.39 M/uL Hemoglobin 12.7 g/dL Hematocrit 45.9 % Mean Corpuscular Volume 104.6 fL Mean Corpuscular Hemoglobin 28.9 pg Mean Corpuscular Hemoglobin Concent 27.7 g/dl Platelet Count 141 K/uL Mean Platelet Volume 12.6 fL Neutrophils (%) (Auto) 76.9 % Lymphocytes (%) (Auto) 12.8 % Monocytes (%) (Auto) 9.0 % Eosinophils (%) (Auto) 0.5 % Basophils (%) (Auto) 0.3 % Neutrophils # (Auto) 5.67 K/uL Lymphocytes # (Auto) 0.94 K/uL Monocytes # (Auto) 0.66 K/uL Eosinophils # (Auto) 0.04 K/uL Basophils # (Auto) 0.02 K/uL RDW Standard Deviation 57.1 fL RDW Coefficient of Variation 14.8 % Immature Granulocyte % (Auto) 0.5 % Immature Granulocyte # (Auto) 0.04 K/uL Sodium Level 138 mmol/L Potassium Level 3.8 mmol/L Chloride Level 87 mmol/L Carbon Dioxide Level 53 mmol/L Anion Gap -2.0 mmol/L Blood Urea Nitrogen 13 mg/dl Creatinine 0.50 mg/dl Est Creatinine Clear Calc Drug Dose 171.0 ml/min Estimated GFR () 119.4 Estimated GFR (Non- 103.0 BUN/Creatinine Ratio 26.0 Random Glucose 95 mg/dl Calcium Level 9.2 mg/dl Total Bilirubin 0.5 mg/dl Aspartate Amino Transf (AST/SGOT) 47 U/L Alanine Aminotransferase (ALT/SGPT) 110 U/L Alkaline Phosphatase 32 U/L Total Creatine Kinase 81 U/L Creatine Kinase MB 6.3 ng/ml Creatine Kinase MB Ratio 7.8 Troponin I 0.028 ng/ml Pro-B-Type Natriuretic Peptide 1100 pg/ml Total Protein 6.6 gm/dl Albumin 3.4 gm/dl Globulin 3.2 gm/dl Albumin/Globulin Ratio 1.1 Arterial Blood pH 7.22 Arterial Blood Partial Pressure CO2 135 mmHg Arterial Blood Partial Pressure O2 164 mm/Hg Arterial Blood HCO3 54 mmol/L Arterial Blood Oxygen Saturation 98.7 % Arterial Blood Base Excess 20.4 mEq/L Arterial Blood Gas Delivery 100% BIPAP Daniel Test POS Diagnostic Results ABG was consistent with acute on chronic hypercapnic respiratory failure, chest x-ray with pulmonary vascular congestion. The rest of her labs are within acceptable limits. Assessment & Plan 1. Acute on chronic hypercapnic respiratory failure. It could be medications related however I do not have her home medications. Apparently the patient was taking diuretics at home. 2. COPD exacerbation is highly likely in this patient who had a diagnosis. 3. History of hypertension hyperlipidemia. 4. History of a tremor, per patient, I could not confirm it. 5. Recent fall without sustaining any fractures. 6. Obesity hypoventilation syndrome, not sure if the patient has been treated with BiPAP at home. This is the first visit of this patient to our institution. Plan: 1. We will obtain old records from her primary care physician if possible. 2. I will keep the patient on the BiPAP for now. 3. Repeat the ABG. 4. If the patient continued to be somnolent with rising PCO2, the patient would benefit from intubation. 5. Glucose control. 6. Agree with the steroids and adjust the dose to 40 mg IV every 6 hours. 7. The patient with pulmonary vascular congestion and edema in the periphery however she does have significant CO2 retention, I would be cautiously administering diuretics, and I will try to avoid Diamox. 8. Continue with DVT prophylaxis. 9. Keep the patient n.p.o. 10. If the family at the bedside at any given time will discuss the case with them and update them. 11. I will hold off on any further narcotics. 12. Case discussed with the staff and details. Critical care time spent with the patient was 45 minutes excluding procedure time.
[2017-12-28] MEDS: LEVOFLOXACIN / D5W 500 MG in PREMIXED IN D5W 100 ML IV SCH (18:39)
[2017-12-28] MEDS: ALBUT/IPRATROP 3MG/0.5MG NEB 3 ML VIAL NEB SCH (19:02)
[2017-12-28] MEDS: INSULIN ASPART 100 UNITS/ML 3 ML PEN SC SCH (21:00)
[2017-12-28] MEDS ORDERED: METHYLPREDNISOLONE IV 60 MG in SYRINGE 0 ML IV SCH (22:00)
[2017-12-29] VITALS (31 sets, daily range): BP systolic 109–162; BP diastolic 46–93; PULSE 63–84; TEMP 36.3–37.7; O2SAT 83–96
[2017-12-29] MEDS: METHYLPREDNISOLONE IV 40 MG in SYRINGE 0 ML IV SCH ×5 (00:05→23:51)
[2017-12-29] MEDS: ALBUT/IPRATROP 3MG/0.5MG NEB 3 ML VIAL NEB SCH ×4 (02:12→19:10)
--- NOTE | 2017-12-29 03:39 | Critical Care Progress Note ---
Critical Care Progress Note Date of Service Dec 29, 2017. Critical Care Progress Note I was approached by nursing staff as the patient was having episodes of persistent hypoxia with SPO2 saturations in the low 80s. Patient was independently evaluated by myself. She had equal breath sounds bilaterally. She was drawing tidal volumes in the 300s, however when she was awoken, she would drill larger tidal volumes in the thousands. Per her current settings, the patient is on a BiPAP with 18/8. Patient did arouse with painful stimuli as well as with loudly stating her name. At this point, I did repeat ABG for evaluation of oxygenation/ventilation status while on BiPAP. In addition, adjustments were made to the BiPAP to increase the FiO2 to 50% as she was already with large inspiratory pressures and did not wish to adjust this for risk of barotrauma. This did seem to improve the patient's oxygenation. ABG demonstrates no significant change in CO2, however her SPO2 has improved as has the pH itself. No other alterations of the BiPAP settings were made at this point. I will order repeat ABG in the morning as long as the patient continues to have an uneventful night. I have personally spent 30 minutes of critical care time in the direct management of this patient. This is a life/limb threatening event. This includes time spent evaluating patient, direct bedside care, chart review, placing orders, interpretation of diagnostic studies, discussion with consultants, patient, and family members, as well as other required patient management activities. This time is exclusive of all separately billable procedures, and teaching time and separate from and in addition to any other critical care service time.
[2017-12-29 05:25] LABS: ALBUMIN 3.2 gm/dl (3.4-5.0); ALT/SGPT 112 U/L (12-78); AST/SGOT 40 U/L (15-37); BLOOD UREA NITROGEN 12 mg/dl (7-18); CALCIUM 9.2 mg/dl (8.5-10.1); CREATININE 0.55 mg/dl (0.60-1.20); GLUCOSE 128 mg/dl (70-99); POTASSIUM 4.3 mmol/L (3.5-5.1); SODIUM 136 mmol/L (136-145)
[2017-12-29 05:28] LABS: ALKALINE PHOSPHATASE 34 U/L (45-117); PHOSPHORUS 3.4 mg/dl (2.5-4.9); TOTAL PROTEIN 6.9 gm/dl (6.4-8.2)
[2017-12-29 05:48] LABS: CARBON DIOXIDE 52 mmol/L (21-32)
[2017-12-29 05:56] LABS: HEMATOCRIT 45.9 % (37-47); HEMOGLOBIN 12.8 g/dL (12.0-16.0); IG# 0.04 K/uL (0.00-0.02); LYMPH % 9.5 %; LYMPH ABS # 0.49 K/uL (1.2-3.4); MEAN CELL VOLUME 102.7 fL (80-100); MEAN CORPUSCULAR HEMOGLOBIN 28.6 pg (25-34); MEAN CORPUSCULAR HGB CONC 27.9 g/dl (32-36); MONO % 2.5 %; MONO ABS # 0.13 K/uL (0.11-0.59); NEUT % 87.2 %; NEUT ABS # 4.52 K/uL (1.4-6.5); PLATELET COUNT 139 K/uL (130-400); WHITE BLOOD COUNT 5.18 K/uL (4.8-10.8)
[2017-12-29 08:16] LABS: HEMOGLOBIN A1C 5.9 % (4.5-5.6)
[2017-12-29] MEDS ORDERED: PHARMACY GLYCEMIC MGMT CONSULT SCH (08:28)
[2017-12-29] MEDS ORDERED: INSULIN GLARGINE SOLOSTAR 100 UNITS/ML 3 ML PEN SC SCH (09:00)
[2017-12-29] MEDS: INSULIN ASPART 100 UNITS/ML 3 ML PEN SC SCH ×4 (09:33→21:00)
--- NOTE | 2017-12-29 10:55 | ECHOCARDIOGRAM REPORT ---
*NOTICE TO RECEIVING [employer] This information is strictly Confidential and protected under [place] law. [place] law prohibits you from making any further disclosure of this information unless further disclosure is expressly permitted by the written consent of the person to whom it pertains or is authorized by law. A general authorization for the release of medical or other information is not sufficient for this purpose. Hospital accepts no responsibility if the information is made available to any other person, INCLUDING THE PATIENT. Interpretation Summary * Name: LEYDI MARSHALL Study Date: 12/29/2017 06:48 AM BP: 129/69 mmHg * Patient Location: [facility] HR: 72 * : 1955 (M/d/yyyy) Gender: Female Height: 64 in * Age: 62 yrs Ethnicity: [place] Weight: 322 lb * Ordering Physician: ANAS. CARLOS FORTE * Performed By: Jackie Alfonso RDCS * * Reason For Study: CHF * BSA: 2.4 m2 * -- Conclusions -- * SEVERELY LIMITED STUDY DESPITE USE OF DEFINITY CONTRAST * 1. LV size appears grossly normal. * 2. LV function appears grossly normal. Cannot exclude regional wall motion abnormalities. * 3. Valves not well visualized. No gross regurgitant/stenotic lesions. Procedure Details * The study was technically limited. * The study was technically difficult. * Limited views were obtained. * There were technical limitations due to patient'sbody habitus * A contrast injection of Definity was performed to improve assessment of LV function. * Contrast was injected into an intravenous site in the left arm. * One vial of Definity ultrasound contrast was diluted in normal saline to a total volume of 10 ml. A total of '2' ml of solution was administered during imaging. * Lot # [id number] of Definity utilized for procedure. * Expiration date 12/29. Left Ventricle * The left ventricle is grossly normal size. * Ejection Fraction = 50-55%. * Regional wall motion abnormalities cannot be excluded due to limited visualization. Right Ventricle * The right ventricle is not well visualized. Atria * The left atrium is not well visualized. * Right atrium not well visualized. Mitral Valve * The mitral valve is not well visualized. * There is no mitral valve stenosis. * Significant mitral regurgitation is absent. Tricuspid Valve * The tricuspid valve is not well visualized. * Significant tricuspid regurgitation is absent. Aortic Valve * The aortic valve is not well visualized. * No hemodynamically significant valvular aortic stenosis. * There is no significant aortic regurgitation. Pulmonic Valve * The pulmonic valve is not well visualized. MMode 2D Measurements and Calculations asc Aorta Diam 3.0 cm LVAd ap4 31.6 cm\S\2 LVLd ap4 7.9 cm EDV(MOD-sp4) 104.0 ml EDV(sp4-el) 106.5 ml LVAs ap4 20.4 cm\S\2 LVLs ap4 7.2 cm ESV(MOD-sp4) 48.8 ml ESV(sp4-el) 49.4 ml EF(MOD-sp4) 53.1 % EF(sp4-el) 53.6 % SV(MOD-sp4) 55.2 ml SI(MOD-sp4) 23.0 ml/m\S\2 SV(sp4-el) 57.1 ml SI(sp4-el) 23.8 ml/m\S\2 Doppler Measurements and Calculations MV E max lyubov 96.9 cm/sec MV A max lyubov 98.5 cm/sec MV E/A 0.98 MV dec time 0.24 sec Ao V2 max 107.8 cm/sec Ao max PG 4.7 mmHg Ao max PG (full) 2.6 mmHg LV V1 max PG 2.1 mmHg LV V1 max 72.3 cm/sec PA V2 max 124.5 cm/sec PA max PG 6.2 mmHg
--- NOTE | 2017-12-29 12:03 | Pharmacy Progress Note ---
Pharmacy Glycemic Short Note 2 Date of Service Dec 29, 2017. OUTPATIENT ANTIDIABETIC REGIMEN: * Metformin 500mg PO BID * A1c = 5.9% 12/29/17 ASSESSMENT: 12/29/17 * Well controlled type 2 diabetic admitted yesterday for acute on chronic resp failure, encephalopathy and fall * High dose IV steroids initiated for treatment of COPD exacerbation * Thus far BSGs have not climbed, however I suspect that BSGs will climb later today following meals * Will begin a low dose of Lantus this AM however use a scale for dosing later today should glycemic control deteriorate quickly * Will also add a prandial insulin dose (carb ratio) to Novolog order as steroids produce the greatest effect on post-prandial glycemic control PLAN FOR INPATIENT GLYCEMIC CONTROL: * Hold outpatient oral diabetes medications * Basal insulin * Lantus 10 units SQ this AM, then dose BID per the following scale (starting with dinner accucheck) * give 0 units if BSG less than 110 * give 15 units if BSG 110-140 * give 20 units if BSG 141-180 * give 25 units if BSG above 180 * Bolus insulin * NovoLog per scale ACHS and at 0200 tonight * Goal Range: Low 120 mg/dL - High 150 mg/dL * Correction Factor: 20 mg/dL/unit * Nutritional / Prandial insulin per carb ratio of 1 unit per 8 grams CHO consumed PLAN FOR DISCHARGE: * May resume outpt dose of metformin
[2017-12-29] MEDS ORDERED: NURSING VERBAL MED ORDER ONE (15:00)
[2017-12-29] MEDS: ACETAMINOPHEN 325 MG TAB PO PRN (15:25)
[2017-12-29] MEDS: INSULIN GLARGINE SOLOSTAR 100 UNITS/ML 3 ML PEN SC SCH (16:47)
[2017-12-29] MEDS: LEVOFLOXACIN / D5W 500 MG in PREMIXED IN D5W 100 ML IV SCH (18:23)
--- NOTE | 2017-12-29 19:50 | Critical Care Progress Note ---
Critical Care Progress Note Date of Service Dec 29, 2017. Attending Dr. Honeycutt Subjective The patient is becoming more awake following commands, today she was able to answer questions appropriately, she denies any use of medications that could alter her respiratory status, she has been active smoker off and on but most of her life. The patient did not have any chest pain today. She was able to tolerate oral intake. Apparently she was supposed to have a BiPAP at home but she did not take it as she lost her insurance and she did not have any coverage for it. Objective Her physical exam on 12/29/2017 revealed vital signs are stable, no fever, trachea is midline, heart examination S1-S2 regular rate and rhythm, lungs with distant breath sounds bilaterally, abdomen is benign, no edema in the periphery. Her laboratory were reviewed as well. All acceptable. Assessment & Plan 1. Acute on chronic hypercapnic respiratory failure. 2. Obesity hypoventilation syndrome. 3. COPD, gold level 3. 4. History of essential tremor. 5. History of hypertension hyperlipidemia. 6. History of multiple falls. Plan: 1. I will continue Solu-Medrol. 2. Continue bronchodilators. 3. manager statistical programming consult and social work coordinator consult to straighten up her insurance. 4. The patient would benefit from BiPAP or trilogy. 5. The patient will need continuous treatment with BiPAP at home for life. 6. I would use a BiPAP currently and 4 hours on and 4 hours off as needed during the daytime and during the nighttime and will be used on a steady basis. 7. Glucose has been well controlled. Appreciate pharmacy input. 8. Venodyne boots and DVT prophylaxis. 9. Oral intake. 10. Patient can be discharged to the regular floor was acceptable by the hospitalist service. Thank you, will continue to follow. Case discussed with the staff on rounds and details. Critical care time spent with the patient was 45 minutes. Data Medications: Current Inpatient Medications Medications (Trade) Dose Ordered Sig/Yaya Route Start Time Stop Time Status Last Admin Dose Admin Ioversol (Optiray 320) 100 ml UD PRN IV 12/28/17 16:00 01/01/18 15:59 Insulin Aspart (novoLOG ASPART) SLIDING SCALE If C... ACHS SC 12/28/17 21:00 01/27/18 20:59 12/29/17 16:46 9 UNITS Glucose (Glucose 40% Gel) 15-30 GRAMS 15 GRAMS... UD PRN PO 12/28/17 16:45 01/27/18 16:44 Glucose (Glucose Chew Tab) 4-8 Tablets 4 Tabl... UD PRN PO 12/28/17 16:45 01/27/18 16:44 Dextrose (Dextrose 50% 50ML Syringe) 25-50ML OF 50% DW IV FOR... UD PRN IV 12/28/17 16:45 01/27/18 16:44 Glucagon (Glucagon Inj) 1 mg UD PRN SQ 12/28/17 16:45 01/27/18 16:44 Albuterol/ Ipratropium (Duoneb) 3 ml Q6R NEB 12/28/17 21:00 01/27/18 20:59 12/29/17 19:10 3 ML Levofloxacin 500 mg/Prmx 100 ml @ 100 mls/hr Q24H IV 12/28/17 18:30 01/02/18 18:29 12/29/17 18:23 100 MLS/HR Methylprednisolone Sodium Succinate 40 mg/Syringe 0.64 ml @ 1.5 mls/min Q6 IV 12/29/17 00:00 01/27/18 21:59 12/29/17 18:24 1.5 MLS/MIN Miscellaneous Information (Consult Glycemic Management Pharmacy) 1 ea UD N/A 12/29/17 08:28 01/28/18 08:27 Insulin Glargine (Lantus Solostar Pen) See Protocol Text BID SC 12/29/17 16:00 01/28/18 15:59 12/29/17 16:47 15 UNITS Acetaminophen (Tylenol Tab) 650 mg Q4H PRN PO 12/29/17 15:15 01/28/18 15:14 12/29/17 15:25 650 MG Insulin Aspart (novoLOG ASPART) SLIDING SCALE If C... TODAY@0200 ONCE SC 12/30/17 02:00 12/30/17 02:01 Vital Signs: Date Time Temp Pulse Resp B/P (MAP) Pulse Ox O2 Delivery O2 Flow Rate FiO2 12/29/17 19:12 80 18 92 Nasal Cannula 5.0 12/29/17 14:07 73 17 90 Nasal Cannula 5.0 12/29/17 12:01 37.0 84 121/65 (75) 93 12/29/17 12:01 84 121/65 (83) 93 12/29/17 12:00 Nasal Cannula 5.0 12/29/17 11:14 82 145/56 (83) 90 12/29/17 10:01 81 120/47 (71) 89 12/29/17 10:01 81 120/47 (62) 89 12/29/17 09:02 73 109/46 (81) 95 12/29/17 08:01 75 131/60 (75) 93 12/29/17 08:00 92 BiPAP 40 12/29/17 08:00 36.7 12/29/17 07:18 81 92 50 12/29/17 07:15 82 17 92 BiPAP/CPAP 50 12/29/17 07:01 72 127/54 (86) 96 12/29/17 06:00 40 12/29/17 06:00 37.0 73 24 120/53 (73) 92 12/29/17 04:16 90 BiPAP 40 12/29/17 04:14 37.3 72 22 129/69 (88) 90 12/29/17 04:02 BiPAP 40 12/29/17 03:19 74 24 148/53 (95) 92 12/29/17 02:13 70 90 50 12/29/17 02:12 70 17 90 BiPAP/CPAP 50 12/29/17 02:05 BiPAP 40 12/29/17 02:03 37.0 70 22 140/60 (92) 93 12/29/17 01:06 69 23 137/49 (93) 92 12/29/17 00:04 67 23 94 BiPAP 12/29/17 00:01 36.9 63 24 128/54 (96) 93 12/29/17 00:01 BiPAP 40 12/28/17 22:36 73 22 136/134 (135) 89 BiPAP 40.0 12/28/17 21:26 75 134/52 (79) 85 BiPAP 40.0 12/28/17 20:00 BiPAP 40.0 40 12/28/17 20:00 64 81 Laboratory Results: Last 24 Hours Test 12/28/17 21:11 12/29/17 00:57 4/19/18 04:48 12/29/17 05:16 Bedside Glucose 121 mg/dl Blood Gas Sample Site R Radial R Radial Bedside Blood Gas pH (LAB) 7.44 7.45 Bedside Blood Gas pCO2 (LAB) 95 mmHg 88 mmHg Bedside Blood Gas pO2 (LAB) 74 mmHg 64 mmHg Bedside Blood Gas HCO3 (LAB) 65 meq/L 60 meq/L Bedside Blood Gas Total CO2 < 5 mEq/l < 5 mEq/l Bedside Blood Gas Base Excess (LAB) > 30.0 meq/L > 30.0 meq/L Bedside Blood Gas O2 Saturation 93.0 % 91.0 % Daniel Test Pass Pass Oxygen Delivery Device BIPAP BIPAP Bedside Oxygen Rate (breaths/min) 18 20 Bedside FiO2 50 % 50 % Blood Gas IPAP 18 18 White Blood Count 5.18 K/uL Red Blood Count 4.47 M/uL Hemoglobin 12.8 g/dL Hematocrit 45.9 % Mean Corpuscular Volume 102.7 fL Mean Corpuscular Hemoglobin 28.6 pg Mean Corpuscular Hemoglobin Concent 27.9 g/dl Platelet Count 139 K/uL Mean Platelet Volume 13.0 fL Neutrophils (%) (Auto) 87.2 % Lymphocytes (%) (Auto) 9.5 % Monocytes (%) (Auto) 2.5 % Eosinophils (%) (Auto) 0.0 % Basophils (%) (Auto) 0.0 % Neutrophils # (Auto) 4.52 K/uL Lymphocytes # (Auto) 0.49 K/uL Monocytes # (Auto) 0.13 K/uL Eosinophils # (Auto) 0.00 K/uL Basophils # (Auto) 0.00 K/uL RDW Standard Deviation 57.0 fL RDW Coefficient of Variation 15.0 % Immature Granulocyte % (Auto) 0.8 % Immature Granulocyte # (Auto) 0.04 K/uL Stomatocytes 1+ Sodium Level 136 mmol/L Potassium Level 4.3 mmol/L Chloride Level 89 mmol/L Carbon Dioxide Level 52 mmol/L Anion Gap mmol/L Blood Urea Nitrogen 12 mg/dl Creatinine 0.55 mg/dl Est Creatinine Clear Calc Drug Dose 151.0 ml/min Estimated GFR () 115.7 Estimated GFR (Non- 99.8 BUN/Creatinine Ratio 21.9 Random Glucose 128 mg/dl Estimated Average Glucose 123 mg/dl Hemoglobin A1c 5.9 % Calcium Level 9.2 mg/dl Phosphorus Level 3.4 mg/dl Magnesium Level 2.5 mg/dl Total Bilirubin 0.5 mg/dl Direct Bilirubin 0.2 mg/dl Aspartate Amino Transf (AST/SGOT) 40 U/L Alanine Aminotransferase (ALT/SGPT) 112 U/L Alkaline Phosphatase 34 U/L Total Protein 6.9 gm/dl Albumin 3.2 gm/dl Test 12/29/17 08:06 12/29/17 11:43 12/29/17 16:28 Bedside Glucose 129 mg/dl 172 mg/dl 124 mg/dl
[2017-12-30] VITALS (22 sets, daily range): BP systolic 93–191; BP diastolic 51–73; PULSE 62–79; TEMP 36.8–37.2; O2SAT 87–97
[2017-12-30] MEDS: ACETAMINOPHEN 325 MG TAB PO PRN ×2 (00:01→21:00)
[2017-12-30] MEDS ORDERED: INSULIN ASPART 100 UNITS/ML 3 ML PEN SC ONE (02:00)
[2017-12-30 05:32] LABS: HEMATOCRIT 44.9 % (37-47); HEMOGLOBIN 12.7 g/dL (12.0-16.0); IG# 0.02 K/uL (0.00-0.02); LYMPH % 8.5 %; LYMPH ABS # 0.66 K/uL (1.2-3.4); MEAN CELL VOLUME 100.4 fL (80-100); MEAN CORPUSCULAR HEMOGLOBIN 28.4 pg (25-34); MEAN CORPUSCULAR HGB CONC 28.3 g/dl (32-36); MEAN PLATELET VOLUME 11.9 fL (7.4-10.4); MONO % 2.4 %; MONO ABS # 0.19 K/uL (0.11-0.59); NEUT % 88.8 %; NEUT ABS # 6.89 K/uL (1.4-6.5); PLATELET COUNT 161 K/uL (130-400); RED CELL DISTRIBUTION WIDTH CV 15.2 % (11.5-14.5); RED CELL DISTRIBUTION WIDTH SD 55.6 fL (36.4-46.3); WHITE BLOOD COUNT 7.76 K/uL (4.8-10.8)
[2017-12-30 05:54] LABS: ALBUMIN 3.2 gm/dl (3.4-5.0); ALT/SGPT 97 U/L (12-78); AST/SGOT 26 U/L (15-37); CREATININE 0.61 mg/dl (0.60-1.20); GLUCOSE 144 mg/dl (70-99); POTASSIUM 4.5 mmol/L (3.5-5.1); SODIUM 137 mmol/L (136-145)
[2017-12-30] MEDS: METHYLPREDNISOLONE IV 40 MG in SYRINGE 0 ML IV SCH (06:13)
[2017-12-30 06:31] LABS: ALKALINE PHOSPHATASE 31 U/L (45-117); CARBON DIOXIDE 46 mmol/L (21-32); PHOSPHORUS 5.4 mg/dl (2.5-4.9); TOTAL PROTEIN 6.8 gm/dl (6.4-8.2)
[2017-12-30 06:39] LABS: BLOOD UREA NITROGEN 20 mg/dl (7-18)
[2017-12-30] MEDS: INSULIN ASPART 100 UNITS/ML 3 ML PEN SC SCH ×4 (06:45→21:06)
--- NOTE | 2017-12-30 07:22 | Hospitalist Progress Note ---
Hospitalist Progress Note Date of Service Dec 29, 2017. Subjective Pt evaluation today including: conversation w/ patient Patient feels better. She is still a little confused at times. She tells me she has a history of a similar admission at [facility] for high carbon dioxide levels but is confused about when that happened. All Other Systems: Reviewed and Negative Objective Vital Signs Date Time Temp Pulse Resp B/P (MAP) Pulse Ox O2 Delivery O2 Flow Rate FiO2 12/30/17 05:01 65 157/62 (93) 93 12/30/17 04:01 36.8 77 151/73 (99) 93 BiPAP 50 12/30/17 04:00 BiPAP 50 12/30/17 03:01 69 140/61 (87) 92 12/30/17 02:01 69 154/68 (96) 92 BiPAP 50 12/30/17 01:53 72 13 87 BiPAP/CPAP 40 12/30/17 01:52 72 87 40 12/30/17 01:01 67 155/70 (98) 90 12/30/17 00:01 37.1 77 150/64 (92) 93 BiPAP 40 12/29/17 23:59 BiPAP 40 12/29/17 23:01 74 143/74 (97) 93 40 12/29/17 22:09 71 95 40 12/29/17 22:01 72 131/93 (106) 92 BiPAP 12/29/17 20:02 37.7 77 145/72 (96) 91 12/29/17 20:00 92 Nasal Cannula 5.0 12/29/17 19:12 80 18 92 Nasal Cannula 5.0 12/29/17 19:01 72 162/66 (98) 92 12/29/17 18:07 79 138/66 (90) 94 12/29/17 18:01 78 138/66 (90) 92 12/29/17 16:01 36.3 70 153/65 (94) 90 12/29/17 16:00 Nasal Cannula 5.0 12/29/17 15:33 74 140/58 (85) 90 Nasal Cannula 5.0 12/29/17 14:07 73 17 90 Nasal Cannula 5.0 12/29/17 12:01 37.0 84 121/65 (75) 93 12/29/17 12:01 84 121/65 (83) 93 12/29/17 12:00 Nasal Cannula 5.0 12/29/17 11:14 82 145/56 (83) 90 12/29/17 10:01 81 120/47 (71) 89 12/29/17 10:01 81 120/47 (62) 89 12/29/17 09:02 73 109/46 (81) 95 12/29/17 08:01 75 131/60 (75) 93 12/29/17 08:00 92 BiPAP 40 12/29/17 08:00 36.7 12/29/17 07:18 81 92 50 12/29/17 07:15 82 17 92 BiPAP/CPAP 50 Physical Exam General Appearance: WD/WN, no apparent distress, + obese Eyes: normal inspection, sclerae normal ENT: hearing grossly normal Neck: trachea midline Respiratory/Chest: no respiratory distress, no accessory muscle use, + decreased breath sounds (Diminished throughout) Cardiovascular: regular rate, rhythm, no edema, no murmur Abdomen: normal bowel sounds, non tender, soft Extremities: no calf tenderness, + swelling (1+ pitting edema bilateral legs) Neurologic/Psychiatric: alert, normal mood/affect Skin: normal color, warm/dry, no rash Laboratory Results Last 24 Hours Test 12/29/17 08:06 12/29/17 11:43 12/29/17 16:28 12/29/17 21:05 Bedside Glucose 129 mg/dl 172 mg/dl 124 mg/dl 116 mg/dl Test 12/30/17 01:57 12/30/17 04:49 12/30/17 05:22 Bedside Glucose 130 mg/dl White Blood Count 7.76 K/uL Red Blood Count 4.47 M/uL Hemoglobin 12.7 g/dL Hematocrit 44.9 % Mean Corpuscular Volume 100.4 fL Mean Corpuscular Hemoglobin 28.4 pg Mean Corpuscular Hemoglobin Concent 28.3 g/dl Platelet Count 161 K/uL Mean Platelet Volume 11.9 fL Neutrophils (%) (Auto) 88.8 % Lymphocytes (%) (Auto) 8.5 % Monocytes (%) (Auto) 2.4 % Eosinophils (%) (Auto) 0.0 % Basophils (%) (Auto) 0.0 % Neutrophils # (Auto) 6.89 K/uL Lymphocytes # (Auto) 0.66 K/uL Monocytes # (Auto) 0.19 K/uL Eosinophils # (Auto) 0.00 K/uL Basophils # (Auto) 0.00 K/uL RDW Standard Deviation 55.6 fL RDW Coefficient of Variation 15.2 % Immature Granulocyte % (Auto) 0.3 % Immature Granulocyte # (Auto) 0.02 K/uL Sodium Level 137 mmol/L Potassium Level 4.5 mmol/L Chloride Level 93 mmol/L Carbon Dioxide Level 46 mmol/L Anion Gap -2.0 mmol/L Blood Urea Nitrogen 20 mg/dl Creatinine 0.61 mg/dl Est Creatinine Clear Calc Drug Dose 132.6 ml/min Estimated GFR () 111.8 Estimated GFR (Non- 96.5 BUN/Creatinine Ratio 32.3 Random Glucose 144 mg/dl Calcium Level 9.0 mg/dl Phosphorus Level 5.4 mg/dl Magnesium Level 2.5 mg/dl Total Bilirubin 0.4 mg/dl Direct Bilirubin < 0.1 mg/dl Aspartate Amino Transf (AST/SGOT) 26 U/L Alanine Aminotransferase (ALT/SGPT) 97 U/L Alkaline Phosphatase 31 U/L Total Protein 6.8 gm/dl Albumin 3.2 gm/dl Blood Gas Sample Site R Radial Bedside Blood Gas pH (LAB) 7.39 Bedside Blood Gas pCO2 (LAB) 87 mmHg Bedside Blood Gas pO2 (LAB) 70 mmHg Bedside Blood Gas HCO3 (LAB) 53 meq/L Bedside Blood Gas Total CO2 < 5 mEq/l Bedside Blood Gas Base Excess (LAB) 28.0 meq/L Bedside Blood Gas O2 Saturation 92.0 % Daniel Test Pass Oxygen Delivery Device BIPAP Bedside Oxygen Rate (breaths/min) 12 Bedside FiO2 50 % Blood Gas IPAP 18 Assessment and Plan Ms. Torres is a 62 y/o female with PMHx of T2DM, COPD, and HTN who presents to the ED by BLS for a fall after confusion and weakness. Found to have acute on likely chronic hypercarbic and hypoxic respiratory failure. Acute on Chronic hypercarbic and hypoxic respiratory Failure/Acute metabolic Encephalopathy/acute exacerbation COPD/suspected obesity hypoventilation syndrome-ABG on admission 7.22/135/164 on 100% FiO2, required BiPAP. Was obtunded on arrival. Now improved, still with a little bit of encephalopathy. Hypercarbia is improving -Continue Solu-Medrol, DuoNeb's -To remain on BiPAP nocturnally -Admitted to intensive care unit-appreciate portfolio director management -Follow ABG -Continue Levaquin 7 day course -Will need overnight oximetry and get qualified for home BiPAP Morbid obesity-contributing to her presentation as well -Needs weight loss management T2DM: Hemoglobin A1c 5.9% - Hold Metformin and cover with SSI HTN/peripheral edema-on diltiazem and Lasix, aspirin at home. Blood pressures here mildly elevated. Echocardiogram with normal EF but otherwise severely limited. Likely has some diastolic dysfunction -Holding his medications at this time -May restart if needed Code Status: FULL RESUSCITATION Disposition: Remain in ICU overnight
[2017-12-30] MEDS: ALBUT/IPRATROP 3MG/0.5MG NEB 3 ML VIAL NEB SCH ×3 (07:27→18:59)
[2017-12-30] MEDS: INSULIN GLARGINE SOLOSTAR 100 UNITS/ML 3 ML PEN SC SCH (08:39)
[2017-12-30] MEDS ORDERED: ENOXAPARIN 30 MG/0.3 ML SYR SQ ONE (09:30)
--- NOTE | 2017-12-30 11:02 | Pharmacy Progress Note ---
Pharmacy Glycemic Short Note 2 Date of Service Dec 30, 2017. OUTPATIENT ANTIDIABETIC REGIMEN: * Metformin 500mg PO BID * A1c = 5.9% 12/29/17 ASSESSMENT: 12/29/17 * Well controlled type 2 diabetic admitted yesterday for acute on chronic resp failure, encephalopathy and fall * High dose IV steroids initiated for treatment of COPD exacerbation * Thus far BSGs have not climbed, however I suspect that BSGs will climb later today following meals * Will begin a low dose of Lantus this AM however use a scale for dosing later today should glycemic control deteriorate quickly * Will also add a prandial insulin dose (carb ratio) to Novolog order as steroids produce the greatest effect on post-prandial glycemic control 12/30/17 * BSGs have ranged 116-172 over the last 24 hours, all BSGs at goal * Patient was relatively insulin sensitive despite high-dose steroids over the last 24 hrs. * Fasting BSG mildly elevated (FBS 130-144) this AM w/ 25 units of Lantus on board * Steroid dose is being reduced substantially today. Would expect improved insulin sensitivity over the next 24 hrs. * Will reduce the ordered basal insulin dose and give once daily. * Will continue same CR and CF today, however these parameters may need adjusted with less steroid on board tomorrow. PLAN FOR INPATIENT GLYCEMIC CONTROL: * Hold outpatient oral diabetes medications * Basal insulin (dose reduction) * Lantus SQ Q AM * give 0 units if BSG less than 100 * give 20 units if BSG 100-140 * give 25 units if BSG 141-180 * give 30 units if BSG above 180 * Bolus insulin * NovoLog per scale ACHS and at 0200 tonight * Goal Range: Low 110 mg/dL - High 140 mg/dL * Correction Factor: 20 mg/dL/unit * Nutritional / Prandial insulin per carb ratio of 1 unit per 8 grams CHO consumed PLAN FOR DISCHARGE: * May resume outpt dose of metformin
[2017-12-30] MEDS: LEVOFLOXACIN 500 MG TAB PO SCH (17:39)
--- NOTE | 2017-12-30 18:49 | Critical Care Progress Note ---
Critical Care Progress Note Date of Service Dec 30, 2017. Attending Dr. Honeycutt Subjective The patient remains asymptomatic overnight, tolerated the BiPAP overnight. Objective Her physical exam on 12/29/2017 revealed vital signs are stable, no fever, trachea is midline, heart examination S1-S2 regular rate and rhythm, lungs with distant breath sounds bilaterally, abdomen is benign, no edema in the periphery. Her laboratory were reviewed as well. All acceptable. Physical exam of 12/30/2017 revealed no stridor, no wheezing, lungs are clear, S1 -S2 regular rate and rhythm, vital signs are stable, no edema in the periphery, and abdomen is benign. No new imaging. Her labs are within acceptable limits. Assessment & Plan 1. Acute on chronic hypercapnic respiratory failure. 2. Obesity hypoventilation syndrome. 3. COPD, gold level 3. 4. History of essential tremor. 5. History of hypertension hyperlipidemia. 6. History of multiple falls. Plan: 1. Discontinue Solu-Medrol. 2. Continue bronchodilators. 3. Due to chronic respiratory failure consequent to COPD, patient now requires a noninvasive home ventilator, bilevel therapy with and without a rate would be ineffective as patient requires a volume targeted mode. Ventilation is required to decrease work of breathing and improve pulmonary status. Interruption of ventilator support would lead to decline of health status. 4. Due to the above, I have ordered serology for this patient with AVAPS-AE with auto breath rate of 12, inspiratory time 1 second, pressure support at minimum of 10 and maximum of 18 with EPAP of 5 during sleep and as needed during the daytime. These other settings the patient will have once she obtained trilogy to home. Prescription was written for the above settings. 5. Start prednisone 60 mg p.o. daily for 5 days then taper by 10 mg every third day. 6. While the patient in the hospital, will continue to use her BiPAP at night at the current settings. 7. Glucose has been well controlled. Appreciate pharmacy input. 8. Venodyne boots and DVT prophylaxis. 9. Oral intake. 10. Transferred to regular floor, appreciate Dr. Mancilla acceptance of this case. 11. PT consult. Thank you, will continue to follow. Case discussed with the staff on rounds and details. Critical care time spent with the patient was 45 minutes. Data Medications: Current Inpatient Medications Medications (Trade) Dose Ordered Sig/Yaya Route Start Time Stop Time Status Last Admin Dose Admin Ioversol (Optiray 320) 100 ml UD PRN IV 12/28/17 16:00 01/01/18 15:59 Insulin Aspart (novoLOG ASPART) SLIDING SCALE If C... ACHS SC 12/28/17 21:00 01/27/18 20:59 12/30/17 17:39 4 UNITS Glucose (Glucose 40% Gel) 15-30 GRAMS 15 GRAMS... UD PRN PO 12/28/17 16:45 01/27/18 16:44 Glucose (Glucose Chew Tab) 4-8 Tablets 4 Tabl... UD PRN PO 12/28/17 16:45 01/27/18 16:44 Dextrose (Dextrose 50% 50ML Syringe) 25-50ML OF 50% DW IV FOR... UD PRN IV 12/28/17 16:45 01/27/18 16:44 Glucagon (Glucagon Inj) 1 mg UD PRN SQ 12/28/17 16:45 01/27/18 16:44 Albuterol/ Ipratropium (Duoneb) 3 ml Q6R NEB 12/28/17 21:00 01/27/18 20:59 12/30/17 14:04 3 ML Miscellaneous Information (Consult Glycemic Management Pharmacy) 1 ea UD N/A 12/29/17 08:28 01/28/18 08:27 Acetaminophen (Tylenol Tab) 650 mg Q4H PRN PO 12/29/17 15:15 01/28/18 15:14 12/30/17 00:01 650 MG Prednisone (PredniSONE TAB) 60 mg DAILY PO 12/30/17 09:00 01/29/18 08:59 12/30/17 08:44 60 MG Enoxaparin Sodium (Lovenox Inj) 30 mg Q12H SQ 12/30/17 21:00 01/29/18 20:59 Levofloxacin (Levaquin Tab) 500 mg DAILY@1800 PO 12/30/17 18:00 01/02/18 17:59 12/30/17 17:39 500 MG Insulin Glargine (Lantus Solostar Pen) See Protocol Text QAM SC 12/31/17 09:00 01/30/18 08:59 Insulin Aspart (novoLOG ASPART) SLIDING SCALE If C... TODAY@0200 ONCE SC 12/31/17 02:00 12/31/17 02:01 I & O: 24-Hour Column 12/31/17 08:00 Intake Total 800 ml Output Total 1600 ml Balance -800 ml Vital Signs: Date Time Temp Pulse Resp B/P (MAP) Pulse Ox O2 Delivery O2 Flow Rate FiO2 12/30/17 16:00 70 175/62 (104) 94 12/30/17 16:00 96 Nasal Cannula 2.0 12/30/17 15:01 71 157/62 (81) 93 12/30/17 15:00 68 93 12/30/17 14:04 73 13 93 Nasal Cannula 5.0 12/30/17 13:01 70 175/62 (104) 94 12/30/17 13:00 70 94 12/30/17 12:09 77 158/53 (101) 90 12/30/17 12:00 76 91 12/30/17 12:00 96 Nasal Cannula 2.0 12/30/17 10:00 72 20 191/65 (107) 94 Nasal Cannula 2.0 12/30/17 08:00 36.8 70 20 167/65 (99) 94 Nasal Cannula 2.0 12/30/17 08:00 94 Nasal Cannula 2.0 12/30/17 07:27 79 13 93 Nasal Cannula 5.0 12/30/17 05:01 65 157/62 (93) 93 12/30/17 04:01 36.8 77 151/73 (99) 93 BiPAP 50 12/30/17 04:00 BiPAP 50 12/30/17 03:01 69 140/61 (87) 92 12/30/17 02:01 69 154/68 (96) 92 BiPAP 50 12/30/17 01:53 72 13 87 BiPAP/CPAP 40 12/30/17 01:52 72 87 40 12/30/17 01:01 67 155/70 (98) 90 12/30/17 00:01 37.1 77 150/64 (92) 93 BiPAP 40 12/29/17 23:59 BiPAP 40 12/29/17 23:01 74 143/74 (97) 93 40 12/29/17 22:09 71 95 40 12/29/17 22:01 72 131/93 (106) 92 BiPAP 12/29/17 20:02 37.7 77 145/72 (96) 91 12/29/17 20:00 92 Nasal Cannula 5.0 12/29/17 19:12 80 18 92 Nasal Cannula 5.0 12/29/17 19:01 72 162/66 (98) 92 Laboratory Results: Last 24 Hours Test 12/29/17 21:05 12/30/17 01:57 12/30/17 04:49 12/30/17 05:22 Bedside Glucose 116 mg/dl 130 mg/dl White Blood Count 7.76 K/uL Red Blood Count 4.47 M/uL Hemoglobin 12.7 g/dL Hematocrit 44.9 % Mean Corpuscular Volume 100.4 fL Mean Corpuscular Hemoglobin 28.4 pg Mean Corpuscular Hemoglobin Concent 28.3 g/dl Platelet Count 161 K/uL Mean Platelet Volume 11.9 fL Neutrophils (%) (Auto) 88.8 % Lymphocytes (%) (Auto) 8.5 % Monocytes (%) (Auto) 2.4 % Eosinophils (%) (Auto) 0.0 % Basophils (%) (Auto) 0.0 % Neutrophils # (Auto) 6.89 K/uL Lymphocytes # (Auto) 0.66 K/uL Monocytes # (Auto) 0.19 K/uL Eosinophils # (Auto) 0.00 K/uL Basophils # (Auto) 0.00 K/uL RDW Standard Deviation 55.6 fL RDW Coefficient of Variation 15.2 % Immature Granulocyte % (Auto) 0.3 % Immature Granulocyte # (Auto) 0.02 K/uL Sodium Level 137 mmol/L Potassium Level 4.5 mmol/L Chloride Level 93 mmol/L Carbon Dioxide Level 46 mmol/L Anion Gap -2.0 mmol/L Blood Urea Nitrogen 20 mg/dl Creatinine 0.61 mg/dl Est Creatinine Clear Calc Drug Dose 132.6 ml/min Estimated GFR () 111.8 Estimated GFR (Non- 96.5 BUN/Creatinine Ratio 32.3 Random Glucose 144 mg/dl Calcium Level 9.0 mg/dl Phosphorus Level 5.4 mg/dl Magnesium Level 2.5 mg/dl Total Bilirubin 0.4 mg/dl Direct Bilirubin < 0.1 mg/dl Aspartate Amino Transf (AST/SGOT) 26 U/L Alanine Aminotransferase (ALT/SGPT) 97 U/L Alkaline Phosphatase 31 U/L Total Protein 6.8 gm/dl Albumin 3.2 gm/dl Blood Gas Sample Site R Radial Bedside Blood Gas pH (LAB) 7.39 Bedside Blood Gas pCO2 (LAB) 87 mmHg Bedside Blood Gas pO2 (LAB) 70 mmHg Bedside Blood Gas HCO3 (LAB) 53 meq/L Bedside Blood Gas Total CO2 < 5 mEq/l Bedside Blood Gas Base Excess (LAB) 28.0 meq/L Bedside Blood Gas O2 Saturation 92.0 % Daniel Test Pass Oxygen Delivery Device BIPAP Bedside Oxygen Rate (breaths/min) 12 Bedside FiO2 50 % Blood Gas IPAP 18 Test 12/30/17 09:45 12/30/17 10:57 Prothrombin Time 10.7 SECONDS Prothromb Time International Ratio 1.0 Bedside Glucose 132 mg/dl
--- NOTE | 2017-12-30 20:00 | Hospitalist Progress Note ---
Hospitalist Progress Note Date of Service Dec 30, 2017. Subjective Pt evaluation today including: conversation w/ patient, conversation w/ clinical documentation consultant ([employer]) Voiding: magana catheter in place Patient feels very tired, and is still coughing up some yellow sputum. Otherwise, denies chest pain or abdominal pain. Remains in the ICU but is being transferred to the medical floor this evening. All Other Systems: Reviewed and Negative Objective Vital Signs Date Time Temp Pulse Resp B/P (MAP) Pulse Ox O2 Delivery O2 Flow Rate FiO2 12/30/17 19:00 75 13 93 Nasal Cannula 5.0 12/30/17 16:00 70 175/62 (104) 94 12/30/17 16:00 96 Nasal Cannula 2.0 12/30/17 15:01 71 157/62 (81) 93 12/30/17 15:00 68 93 12/30/17 14:04 73 13 93 Nasal Cannula 5.0 12/30/17 13:01 70 175/62 (104) 94 12/30/17 13:00 70 94 12/30/17 12:09 77 158/53 (101) 90 12/30/17 12:00 76 91 12/30/17 12:00 96 Nasal Cannula 2.0 12/30/17 10:00 72 20 191/65 (107) 94 Nasal Cannula 2.0 12/30/17 08:00 36.8 70 20 167/65 (99) 94 Nasal Cannula 2.0 12/30/17 08:00 94 Nasal Cannula 2.0 12/30/17 07:27 79 13 93 Nasal Cannula 5.0 12/30/17 05:01 65 157/62 (93) 93 12/30/17 04:01 36.8 77 151/73 (99) 93 BiPAP 50 12/30/17 04:00 BiPAP 50 12/30/17 03:01 69 140/61 (87) 92 12/30/17 02:01 69 154/68 (96) 92 BiPAP 50 12/30/17 01:53 72 13 87 BiPAP/CPAP 40 12/30/17 01:52 72 87 40 12/30/17 01:01 67 155/70 (98) 90 12/30/17 00:01 37.1 77 150/64 (92) 93 BiPAP 40 12/29/17 23:59 BiPAP 40 12/29/17 23:01 74 143/74 (97) 93 40 12/29/17 22:09 71 95 40 12/29/17 22:01 72 131/93 (106) 92 BiPAP 12/29/17 20:02 37.7 77 145/72 (96) 91 Physical Exam General Appearance: WD/WN, no apparent distress, + obese Eyes: normal inspection, sclerae normal ENT: hearing grossly normal Neck: trachea midline Respiratory/Chest: no respiratory distress, no accessory muscle use, + decreased breath sounds (Throughout) Cardiovascular: regular rate, rhythm, no murmur, + pertinent finding (Trace pitting edema in the legs bilaterally) Abdomen: normal bowel sounds, non tender, soft (And morbidly obese) Extremities: no calf tenderness Neurologic/Psychiatric: alert, normal mood/affect, oriented x 3 Skin: normal color, warm/dry, no rash Laboratory Results Last 24 Hours Test 12/29/17 21:05 12/30/17 01:57 12/30/17 04:49 12/30/17 05:22 Bedside Glucose 116 mg/dl 130 mg/dl White Blood Count 7.76 K/uL Red Blood Count 4.47 M/uL Hemoglobin 12.7 g/dL Hematocrit 44.9 % Mean Corpuscular Volume 100.4 fL Mean Corpuscular Hemoglobin 28.4 pg Mean Corpuscular Hemoglobin Concent 28.3 g/dl Platelet Count 161 K/uL Mean Platelet Volume 11.9 fL Neutrophils (%) (Auto) 88.8 % Lymphocytes (%) (Auto) 8.5 % Monocytes (%) (Auto) 2.4 % Eosinophils (%) (Auto) 0.0 % Basophils (%) (Auto) 0.0 % Neutrophils # (Auto) 6.89 K/uL Lymphocytes # (Auto) 0.66 K/uL Monocytes # (Auto) 0.19 K/uL Eosinophils # (Auto) 0.00 K/uL Basophils # (Auto) 0.00 K/uL RDW Standard Deviation 55.6 fL RDW Coefficient of Variation 15.2 % Immature Granulocyte % (Auto) 0.3 % Immature Granulocyte # (Auto) 0.02 K/uL Sodium Level 137 mmol/L Potassium Level 4.5 mmol/L Chloride Level 93 mmol/L Carbon Dioxide Level 46 mmol/L Anion Gap -2.0 mmol/L Blood Urea Nitrogen 20 mg/dl Creatinine 0.61 mg/dl Est Creatinine Clear Calc Drug Dose 132.6 ml/min Estimated GFR () 111.8 Estimated GFR (Non- 96.5 BUN/Creatinine Ratio 32.3 Random Glucose 144 mg/dl Calcium Level 9.0 mg/dl Phosphorus Level 5.4 mg/dl Magnesium Level 2.5 mg/dl Total Bilirubin 0.4 mg/dl Direct Bilirubin < 0.1 mg/dl Aspartate Amino Transf (AST/SGOT) 26 U/L Alanine Aminotransferase (ALT/SGPT) 97 U/L Alkaline Phosphatase 31 U/L Total Protein 6.8 gm/dl Albumin 3.2 gm/dl Blood Gas Sample Site R Radial Bedside Blood Gas pH (LAB) 7.39 Bedside Blood Gas pCO2 (LAB) 87 mmHg Bedside Blood Gas pO2 (LAB) 70 mmHg Bedside Blood Gas HCO3 (LAB) 53 meq/L Bedside Blood Gas Total CO2 < 5 mEq/l Bedside Blood Gas Base Excess (LAB) 28.0 meq/L Bedside Blood Gas O2 Saturation 92.0 % Daniel Test Pass Oxygen Delivery Device BIPAP Bedside Oxygen Rate (breaths/min) 12 Bedside FiO2 50 % Blood Gas IPAP 18 Test 12/30/17 09:45 12/30/17 10:57 Prothrombin Time 10.7 SECONDS Prothromb Time International Ratio 1.0 Bedside Glucose 132 mg/dl Assessment and Plan Ms. Torres is a 62 y/o female with PMHx of T2DM, COPD, HTN, and peripheral edema who presents to the ED by BLS for a fall after confusion and weakness. Found to have acute on chronic hypercarbic and hypoxic respiratory failure. Acute on Chronic hypercarbic and hypoxic respiratory Failure/Acute metabolic Encephalopathy/acute exacerbation COPD/suspected obesity hypoventilation syndrome-ABG on admission 7.22/135/164 on 100% FiO2, required BiPAP. Was obtunded on arrival. Now continues to improve with no further encephalopathy. Hypercarbia is improving and her pH is now normalized despite a PaCO2 still in the 80s. Serum bicarbonate is likely chronically elevated and is now down to 46. She is tolerating BiPAP well nocturnally. -Pulmonology change Solu-Medrol to prednisone 60 mg today-taper down by 10 mg every 3 days until completed -Continue DuoNebs -To remain on BiPAP nocturnally here and at rehab facility-Trilogy machine for noninvasive home ventilation ordered for at home by pulmonology with the following settings: * AVAPS-AE with auto breath rate of 12, inspiratory time 1 second, pressure support at minimum of 10 and maximum of 18 with EPAP of 5 during sleep and as needed during the daytime. Prescription was written for the above settings and submitted with case management. -Admitted to intensive care unit-appreciate diesel mechanic construction management-and I will transfer to medical floor -Continue Levaquin 7 day course-switched to p.o. and today is day #3 of 7 Morbid obesity-contributing to her presentation as well -Needs weight loss management T2DM: Hemoglobin A1c 5.9% - Hold Metformin and cover with SSI while admitted HTN/peripheral edema-on diltiazem and Lasix, aspirin at home. Blood pressures here becoming more elevated. Echocardiogram with normal EF but otherwise severely limited. Could potentially have some diastolic dysfunction -restart home diltiazem in the AM -restart lasix bid this evening Code Status: FULL RESUSCITATION Disposition: transfer to medical floor, plan for transfer to [facility] when accepted
[2017-12-30] MEDS: ENOXAPARIN 30 MG/0.3 ML SYR SQ SCH (21:04)
[2017-12-30] MEDS: FUROSEMIDE 40 MG TAB PO SCH (21:43)
[2017-12-31] VITALS (10 sets, daily range): BP systolic 104–127; BP diastolic 66–77; PULSE 65–76; TEMP 36.8–37; O2SAT 91–97
[2017-12-31] MEDS ORDERED: INSULIN ASPART 100 UNITS/ML 3 ML PEN SC ONE (02:00)
[2017-12-31] MEDS: ALBUT/IPRATROP 3MG/0.5MG NEB 3 ML VIAL NEB SCH ×4 (02:16→19:17)
[2017-12-31 06:48] LABS: ALBUMIN 3.1 gm/dl (3.4-5.0); ALT/SGPT 97 U/L (12-78); AST/SGOT 28 U/L (15-37); BLOOD UREA NITROGEN 23 mg/dl (7-18); CALCIUM 8.7 mg/dl (8.5-10.1); CREATININE 0.66 mg/dl (0.60-1.20); GLUCOSE 92 mg/dl (70-99); POTASSIUM 3.9 mmol/L (3.5-5.1); SODIUM 139 mmol/L (136-145)
[2017-12-31 07:18] LABS: HEMATOCRIT 45.2 % (37-47); IG# 0.01 K/uL (0.00-0.02); LYMPH ABS # 1.35 K/uL (1.2-3.4); MEAN CORPUSCULAR HEMOGLOBIN 29.3 pg (25-34); MEAN CORPUSCULAR HGB CONC 28.8 g/dl (32-36); MEAN PLATELET VOLUME 11.7 fL (7.4-10.4); MONO % 9.8 %; NEUT % 71.1 %; NEUT ABS # 5.05 K/uL (1.4-6.5); PLATELET COUNT 140 K/uL (130-400); RED CELL DISTRIBUTION WIDTH CV 15.2 % (11.5-14.5); RED CELL DISTRIBUTION WIDTH SD 56.9 fL (36.4-46.3); WHITE BLOOD COUNT 7.11 K/uL (4.8-10.8)
[2017-12-31 07:29] LABS: ALKALINE PHOSPHATASE 31 U/L (45-117); CARBON DIOXIDE 48 mmol/L (21-32); PHOSPHORUS 4.8 mg/dl (2.5-4.9); TOTAL PROTEIN 6.5 gm/dl (6.4-8.2)
[2017-12-31] MEDS: ASPIRIN 81 MG ECTAB PO SCH (08:24)
[2017-12-31] MEDS: FUROSEMIDE 40 MG TAB PO SCH ×2 (08:25→20:17)
[2017-12-31] MEDS: DILTIAZEM HCL 180 MG ER CAP PO SCH (08:26)
[2017-12-31] MEDS: INSULIN ASPART 100 UNITS/ML 3 ML PEN SC SCH ×4 (08:36→20:16)
[2017-12-31] MEDS: ENOXAPARIN 30 MG/0.3 ML SYR SQ SCH ×2 (08:59→20:17)
[2017-12-31] MEDS ORDERED: INSULIN GLARGINE SOLOSTAR 100 UNITS/ML 3 ML PEN SC SCH (09:00)
--- NOTE | 2017-12-31 10:30 | Pharmacy Progress Note ---
Pharmacy Glycemic Short Note 2 Date of Service Dec 31, 2017. OUTPATIENT ANTIDIABETIC REGIMEN: * Metformin 500mg PO BID * A1c = 5.9% 12/29/17 ASSESSMENT: * Well controlled type 2 diabetic on metformin monotherapy as an outpatient * Pt currently receiving SQ basal bolus insulin regimen in house while metformin on hold and receiving steroids. * Steroids tapered from Solumedrol 40mg IV Q6hrs to prednisone 60mg PO daily. * This should yield a significant improvement in BSGs * Will start to taper insulin regimen to prevent hypoglycemia PLAN FOR INPATIENT GLYCEMIC CONTROL: * Hold outpatient oral diabetes medications * Basal insulin (50% dose reduction) * Lantus 10 units SQ AM * Bolus insulin (no change- continue aggressive scale with steroid induced hyperglycemia) * NovoLog per scale ACHS and at 0200 tonight * Goal Range: Low 110 mg/dL - High 140 mg/dL * Correction Factor: 20 mg/dL/unit * Nutritional / Prandial insulin per carb ratio of 1 unit per 8 grams CHO consumed PLAN FOR DISCHARGE: * May resume outpt dose of metformin * May need NPH insulin scale if severe hyperglycemia occurs with prednisone taper. Dosing TBD based on prednisone dosing.
[2017-12-31] MEDS: ACETAMINOPHEN 325 MG TAB PO PRN (11:07)
--- NOTE | 2017-12-31 13:33 | Pulmonology Progress Note ---
Pulmonary Progress Note Date of Service Dec 31, 2017. Attending Dr. Honeycutt Subjective The patient is asymptomatic from pulmonary standpoint, tolerated the BiPAP overnight, currently on oxygen. No respiratory issues. Objective Physical exam on 12/31/2017 revealed stable vital signs, distant breath sounds but clear, heart examination S1-S2 regular rate and rhythm, minimal edema in the periphery. Abdomen is benign. Neurologically she is intact. Laboratory were reviewed including her most recent ABG. Her pH remains 7.39. Assessment & Plan 1. Acute on chronic hypercapnic respiratory failure, improving. 2. Obesity hypoventilation syndrome with obstructive sleep apnea. 3. COPD, gold level 3 currently requiring oxygen. 4. Possible UTI. Plan: 1. I have filled her prescription for trilogy to be processed through the case consultant. I have added the terminology for necessity of use to my previous note. 2. Continue prednisone 60 mg p.o. daily for 5 days then taper every third day by 10 mg. 3. She will need a follow-up with pulmonary as an outpatient. 4. Continue with bronchodilators including short acting and long-acting beta agonist. 5. Continue with BiPAP nocturnally and with trilogy when she is discharged to home. 6. Agree with pulmonary rehab. No further recommendations from pulmonary standpoint, thank you for allowing me to participate in the care of Mrs. Torres. Please call with any questions. Will follow as needed. Data Medications: Current Inpatient Medications Medications (Trade) Dose Ordered Sig/Yaya Route Start Time Stop Time Status Last Admin Dose Admin Ioversol (Optiray 320) 100 ml UD PRN IV 12/28/17 16:00 01/01/18 15:59 Insulin Aspart (novoLOG ASPART) SLIDING SCALE If C... ACHS SC 12/28/17 21:00 01/27/18 20:59 12/31/17 12:39 5 UNITS Glucose (Glucose 40% Gel) 15-30 GRAMS 15 GRAMS... UD PRN PO 12/28/17 16:45 01/27/18 16:44 Glucose (Glucose Chew Tab) 4-8 Tablets 4 Tabl... UD PRN PO 12/28/17 16:45 01/27/18 16:44 Dextrose (Dextrose 50% 50ML Syringe) 25-50ML OF 50% DW IV FOR... UD PRN IV 12/28/17 16:45 01/27/18 16:44 Glucagon (Glucagon Inj) 1 mg UD PRN SQ 12/28/17 16:45 01/27/18 16:44 Albuterol/ Ipratropium (Duoneb) 3 ml Q6R NEB 12/28/17 21:00 01/27/18 20:59 12/31/17 07:10 3 ML Miscellaneous Information (Consult Glycemic Management Pharmacy) 1 ea UD N/A 12/29/17 08:28 01/28/18 08:27 Acetaminophen (Tylenol Tab) 650 mg Q4H PRN PO 12/29/17 15:15 01/28/18 15:14 12/31/17 11:07 650 MG Prednisone (PredniSONE TAB) 60 mg DAILY PO 12/30/17 09:00 01/29/18 08:59 12/31/17 08:26 60 MG Enoxaparin Sodium (Lovenox Inj) 30 mg Q12H SQ 12/30/17 21:00 01/29/18 20:59 12/31/17 08:59 30 MG Levofloxacin (Levaquin Tab) 500 mg DAILY@1800 PO 12/30/17 18:00 01/02/18 17:59 12/30/17 17:39 500 MG Insulin Glargine (Lantus Solostar Pen) See Protocol Text QAM SC 12/31/17 09:00 01/30/18 08:59 12/31/17 08:36 10 UNITS Aspirin (Ecotrin Tab) 81 mg DAILY PO 12/31/17 09:00 01/30/18 08:59 12/31/17 08:24 81 MG Diltiazem HCl (Dilacor Xr Cap) 180 mg DAILY PO 12/31/17 09:00 01/30/18 08:59 12/31/17 08:26 180 MG Furosemide (Lasix Tab) 40 mg BID PO 12/30/17 21:00 01/29/18 20:59 12/31/17 08:25 40 MG Vital Signs: Date Time Temp Pulse Resp B/P (MAP) Pulse Ox O2 Delivery O2 Flow Rate FiO2 12/31/17 09:43 Nasal Cannula 5.0 12/31/17 07:35 36.8 69 20 120/77 (91) 92 12/31/17 07:11 69 14 92 Nasal Cannula 5.0 12/31/17 02:19 65 14 95 BiPAP/CPAP 50 12/31/17 02:18 65 95 50 12/31/17 01:38 Nasal Cannula 5.0 12/31/17 00:06 36.9 73 20 127/72 (90) 97 BiPAP 12/30/17 22:28 62 97 50 12/30/17 21:03 37.2 74 20 93/51 (65) 94 Nasal Cannula 6.0 12/30/17 19:00 75 13 93 Nasal Cannula 5.0 12/30/17 16:00 70 175/62 (104) 94 12/30/17 16:00 96 Nasal Cannula 2.0 12/30/17 15:01 71 157/62 (81) 93 12/30/17 15:00 68 93 12/30/17 14:04 73 13 93 Nasal Cannula 5.0 Laboratory Results: Last 24 Hours Test 12/30/17 17:02 12/30/17 20:38 12/31/17 02:01 12/31/17 05:34 Bedside Glucose 137 mg/dl 149 mg/dl 94 mg/dl Sodium Level 139 mmol/L Potassium Level 3.9 mmol/L Chloride Level 91 mmol/L Carbon Dioxide Level 48 mmol/L Anion Gap 0.0 mmol/L Blood Urea Nitrogen 23 mg/dl Creatinine 0.66 mg/dl Est Creatinine Clear Calc Drug Dose 123.1 ml/min Estimated GFR () 109.0 Estimated GFR (Non- 94.0 BUN/Creatinine Ratio 35.4 Random Glucose 92 mg/dl Calcium Level 8.7 mg/dl Phosphorus Level 4.8 mg/dl Magnesium Level 2.4 mg/dl Total Bilirubin 0.4 mg/dl Direct Bilirubin < 0.1 mg/dl Aspartate Amino Transf (AST/SGOT) 28 U/L Alanine Aminotransferase (ALT/SGPT) 97 U/L Alkaline Phosphatase 31 U/L Total Protein 6.5 gm/dl Albumin 3.1 gm/dl Vitamin B12 Level 417 pg/mL Folate 16.31 ng/mL Test 12/31/17 07:03 12/31/17 07:31 12/31/17 11:20 White Blood Count 7.11 K/uL Red Blood Count 4.43 M/uL Hemoglobin 13.0 g/dL Hematocrit 45.2 % Mean Corpuscular Volume 102.0 fL Mean Corpuscular Hemoglobin 29.3 pg Mean Corpuscular Hemoglobin Concent 28.8 g/dl Platelet Count 140 K/uL Mean Platelet Volume 11.7 fL Neutrophils (%) (Auto) 71.1 % Lymphocytes (%) (Auto) 19.0 % Monocytes (%) (Auto) 9.8 % Eosinophils (%) (Auto) 0.0 % Basophils (%) (Auto) 0.0 % Neutrophils # (Auto) 5.05 K/uL Lymphocytes # (Auto) 1.35 K/uL Monocytes # (Auto) 0.70 K/uL Eosinophils # (Auto) 0.00 K/uL Basophils # (Auto) 0.00 K/uL RDW Standard Deviation 56.9 fL RDW Coefficient of Variation 15.2 % Immature Granulocyte % (Auto) 0.1 % Immature Granulocyte # (Auto) 0.01 K/uL Bedside Glucose 97 mg/dl 100 mg/dl
--- NOTE | 2017-12-31 15:13 | Hospitalist Progress Note ---
Hospitalist Progress Note Date of Service Dec 31, 2017. Subjective Pt evaluation today including: conversation w/ patient Voiding: magana catheter in place Doing well, less tired. Is out of bed to chair today. Denies shortness of breath. Still coughing and some yellow mucus. She ambulated today with some assistance. All Other Systems: Reviewed and Negative Objective Vital Signs Date Time Temp Pulse Resp B/P (MAP) Pulse Ox O2 Delivery O2 Flow Rate FiO2 12/31/17 14:25 76 14 96 Nasal Cannula 5.0 12/31/17 09:43 Nasal Cannula 5.0 12/31/17 07:35 36.8 69 20 120/77 (91) 92 12/31/17 07:11 69 14 92 Nasal Cannula 5.0 12/31/17 02:19 65 14 95 BiPAP/CPAP 50 12/31/17 02:18 65 95 50 12/31/17 01:38 Nasal Cannula 5.0 12/31/17 00:06 36.9 73 20 127/72 (90) 97 BiPAP 12/30/17 22:28 62 97 50 12/30/17 21:03 37.2 74 20 93/51 (65) 94 Nasal Cannula 6.0 12/30/17 19:00 75 13 93 Nasal Cannula 5.0 12/30/17 16:00 70 175/62 (104) 94 12/30/17 16:00 96 Nasal Cannula 2.0 Physical Exam General Appearance: WD/WN, no apparent distress, + obese Eyes: normal inspection, sclerae normal ENT: hearing grossly normal Neck: trachea midline Respiratory/Chest: no respiratory distress, no accessory muscle use, + decreased breath sounds (Throughout, but improved breath sounds, positive mild crackles at the bases bilaterally) Cardiovascular: regular rate, rhythm, no edema, no murmur Abdomen: normal bowel sounds, non tender, soft Extremities: no calf tenderness Neurologic/Psychiatric: alert, normal mood/affect, oriented x 3 Skin: normal color, warm/dry, no rash Laboratory Results Last 24 Hours Test 12/30/17 17:02 12/30/17 20:38 12/31/17 02:01 12/31/17 05:34 Bedside Glucose 137 mg/dl 149 mg/dl 94 mg/dl Sodium Level 139 mmol/L Potassium Level 3.9 mmol/L Chloride Level 91 mmol/L Carbon Dioxide Level 48 mmol/L Anion Gap 0.0 mmol/L Blood Urea Nitrogen 23 mg/dl Creatinine 0.66 mg/dl Est Creatinine Clear Calc Drug Dose 123.1 ml/min Estimated GFR () 109.0 Estimated GFR (Non- 94.0 BUN/Creatinine Ratio 35.4 Random Glucose 92 mg/dl Calcium Level 8.7 mg/dl Phosphorus Level 4.8 mg/dl Magnesium Level 2.4 mg/dl Total Bilirubin 0.4 mg/dl Direct Bilirubin < 0.1 mg/dl Aspartate Amino Transf (AST/SGOT) 28 U/L Alanine Aminotransferase (ALT/SGPT) 97 U/L Alkaline Phosphatase 31 U/L Total Protein 6.5 gm/dl Albumin 3.1 gm/dl Vitamin B12 Level 417 pg/mL Folate 16.31 ng/mL Test 12/31/17 07:03 12/31/17 07:31 12/31/17 11:20 White Blood Count 7.11 K/uL Red Blood Count 4.43 M/uL Hemoglobin 13.0 g/dL Hematocrit 45.2 % Mean Corpuscular Volume 102.0 fL Mean Corpuscular Hemoglobin 29.3 pg Mean Corpuscular Hemoglobin Concent 28.8 g/dl Platelet Count 140 K/uL Mean Platelet Volume 11.7 fL Neutrophils (%) (Auto) 71.1 % Lymphocytes (%) (Auto) 19.0 % Monocytes (%) (Auto) 9.8 % Eosinophils (%) (Auto) 0.0 % Basophils (%) (Auto) 0.0 % Neutrophils # (Auto) 5.05 K/uL Lymphocytes # (Auto) 1.35 K/uL Monocytes # (Auto) 0.70 K/uL Eosinophils # (Auto) 0.00 K/uL Basophils # (Auto) 0.00 K/uL RDW Standard Deviation 56.9 fL RDW Coefficient of Variation 15.2 % Immature Granulocyte % (Auto) 0.1 % Immature Granulocyte # (Auto) 0.01 K/uL Bedside Glucose 97 mg/dl 100 mg/dl Assessment and Plan Ms. Torres is a 62 y/o female with PMHx of T2DM, COPD, HTN, and peripheral edema who presents to the ED by BLS for a fall after confusion and weakness. Found to have acute on chronic hypercarbic and hypoxic respiratory failure. Acute on Chronic hypercarbic and hypoxic respiratory Failure/Acute metabolic Encephalopathy/acute exacerbation COPD/suspected obesity hypoventilation syndrome-ABG on admission 7.22/135/164 on 100% FiO2, required BiPAP. Was obtunded on arrival. Now continues to improve with no further encephalopathy. Hypercarbia is improving and her pH is now normalized despite a PaCO2 still in the 80s. Serum bicarbonate is likely chronically elevated and is now down to 48. She is tolerating BiPAP well nocturnally. -Continue supplemental O2 during the day to keep pulse ox greater than 92% -Pulmonology change Solu-Medrol to prednisone 60 mg today-taper down by 10 mg every 3 days until completed -Continue DuoNebs -To remain on BiPAP nocturnally here and at rehab facility-Trilogy machine for noninvasive home ventilation ordered for at home by pulmonology with the following settings: * AVAPS-AE with auto breath rate of 12, inspiratory time 1 second, pressure support at minimum of 10 and maximum of 18 with EPAP of 5 during sleep and as needed during the daytime. Prescription was written for the above settings and submitted with case management. -Continue Levaquin 7 day course-switched to p.o. and today is day #4 of 7 Morbid obesity-contributing to her presentation as well -Needs weight loss management as an outpatient T2DM: Hemoglobin A1c 5.9% - Hold Metformin and cover with SSI while admitted Urinary tract infection-E. coli and urine culture that is pansensitive -Continue Levaquin for 7 day course HTN/peripheral edema- Blood pressures here becoming more elevated. Now much improved after restarting home meds Echocardiogram with normal EF but otherwise severely limited. Could potentially have some diastolic dysfunction -Continue diltiazem 180 mg p.o. daily -Continue home Lasix twice daily -Continue aspirin 81 mg daily Code Status: FULL RESUSCITATION Disposition: Still awaiting PT/OT evaluations and then evaluation for acceptance to [facility] possibly on Tuesday. If not accepted to [facility], referral is out to [facility] for discharge on Tuesday
[2017-12-31] MEDS: LEVOFLOXACIN 500 MG TAB PO SCH (17:02)
[2018-01-01] VITALS (8 sets, daily range): BP systolic 104–157; BP diastolic 65–74; PULSE 66–71; TEMP 36.7–37.3; O2SAT 90–96
[2018-01-01] MEDS: ALBUT/IPRATROP 3MG/0.5MG NEB 3 ML VIAL NEB SCH ×4 (01:48→20:39)
[2018-01-01 06:46] LABS: BASO % 0.2 %; BASO ABS # 0.01 K/uL (0-0.2); EOS % 0.2 %; EOS ABS # 0.01 K/uL (0-0.5); HEMATOCRIT 44.1 % (37-47); HEMOGLOBIN 12.4 g/dL (12.0-16.0); IG# 0.02 K/uL (0.00-0.02); LYMPH % 21.2 %; LYMPH ABS # 1.36 K/uL (1.2-3.4); MEAN CELL VOLUME 100.5 fL (80-100); MEAN CORPUSCULAR HEMOGLOBIN 28.2 pg (25-34); MEAN CORPUSCULAR HGB CONC 28.1 g/dl (32-36); MEAN PLATELET VOLUME 12.2 fL (7.4-10.4); MONO % 11.4 %; MONO ABS # 0.73 K/uL (0.11-0.59); NEUT % 66.7 %; NEUT ABS # 4.29 K/uL (1.4-6.5); PLATELET COUNT 149 K/uL (130-400); RED CELL DISTRIBUTION WIDTH SD 55.1 fL (36.4-46.3); WHITE BLOOD COUNT 6.42 K/uL (4.8-10.8)
[2018-01-01 07:18] LABS: CALCIUM 8.8 mg/dl (8.5-10.1); CREATININE 0.59 mg/dl (0.60-1.20); PHOSPHORUS 5.2 mg/dl (2.5-4.9); POTASSIUM 3.5 mmol/L (3.5-5.1); TOTAL PROTEIN 6.1 gm/dl (6.4-8.2)
[2018-01-01] MEDS: DILTIAZEM HCL 180 MG ER CAP PO SCH (07:48)
[2018-01-01] MEDS: ASPIRIN 81 MG ECTAB PO SCH (07:48)
[2018-01-01] MEDS: FUROSEMIDE 40 MG TAB PO SCH ×2 (07:48→21:07)
[2018-01-01] MEDS: ENOXAPARIN 30 MG/0.3 ML SYR SQ SCH ×2 (07:48→21:06)
[2018-01-01] MEDS: INSULIN ASPART 100 UNITS/ML 3 ML PEN SC SCH ×4 (07:53→21:00)
[2018-01-01] MEDS: ACETAMINOPHEN 325 MG TAB PO PRN (07:59)
--- NOTE | 2018-01-01 12:23 | Pharmacy Progress Note ---
Pharmacy Glycemic Short Note 2 Date of Service Jan 01, 2018. OUTPATIENT ANTIDIABETIC REGIMEN: * Metformin 500mg PO BID * A1c = 5.9% 12/29/17 Item Value Date Time Bedside Glucose 100 mg/dl H 12/31/17 1120 Bedside Glucose 119 mg/dl H 12/31/17 1632 Bedside Glucose 132 mg/dl H 12/31/172002 Bedside Glucose 90 mg/dl 01/01/18 0729 Bedside Glucose 105 mg/dl H 01/01/18 1120 ASSESSMENT: * Well controlled type 2 diabetic on metformin monotherapy as an outpatient * Pt currently receiving SQ basal bolus insulin regimen in house while metformin on hold and receiving steroids. * Steroids tapered from Solumedrol 40mg IV Q6hrs to prednisone 60mg PO daily . * This has yielded a significant improvement in BSGs * Started insulin taper 12/31/17 in accordance with step down in steroid dosing. * AM fasting BSG essentially unchanged with minimal basal insulin. Basal insulin likely not needed based on low A1c. Additionally, 24h insulin not needed with once daily prednisone. Will d/c basal insulin. * Post-prandial BSGs are in range. Steroids have their most profound effect on post-prandial hyperglycemia, therefore, aggressive CF/CR warranted. NovoLog is needed while metformin on hold. PLAN FOR INPATIENT GLYCEMIC CONTROL: * Hold outpatient oral diabetes medications * Basal insulin: discontinue * Bolus insulin (no change- continue aggressive scale with steroid induced hyperglycemia) * NovoLog per scale ACHS and at 0200 tonight * Goal Range: Low 110 mg/dL - High 140 mg/dL * Correction Factor: 25 mg/dL/unit * Nutritional / Prandial insulin per carb ratio of 1 unit per 8 grams CHO consumed PLAN FOR DISCHARGE: * May resume outpt dose of metformin * May need NPH insulin scale if severe hyperglycemia occurs with prednisone taper. Dosing TBD based on prednisone dosing.
--- NOTE | 2018-01-01 15:51 | Progress Note ---
Subjective Date of Service: Jan 01, 2018. Subjective Pt evaluation today including: conversation w/ patient, conversation w/ family (son at bedside), physical exam, chart review, lab review, review of studies ( echo, shoulder x-rays, CT head, etc ), review of inpatient medication list Pain: none reported PO Intake: normal Voiding: no voiding problems patient feeling ok today we had a lengthy discussion about her suspected MARIANA, OHS, need for NC O2 and BIPAP, etc she reports having had PFTs at [facility] in [place] about 1-2 years ago and was not told she had any COPD; she was told she had lung disease due to being overweight also had heart cath at [facility] sometime in the last 1-2 years ago but doesn' t recall being told she had CAD she completed a sleep study in the last year but never had the BIPAP/CPAP titration portion has been using NC O2 for about 8-9 months - continuously Review of Systems Constitutional: No fever Cardiac: + edema (chronic), No chest pain Abdomen: No pain Objective Vital Signs Date Time Temp Pulse Resp B/P (MAP) Pulse Ox O2 Delivery O2 Flow Rate FiO2 01/01/18 14:23 70 16 90 Nasal Cannula 4.0 01/01/18 08:00 Nasal Cannula 5.0 01/01/18 07:18 36.9 67 18 104/65 (78) 91 4.0 01/01/18 07:05 71 14 92 Nasal Cannula 4.0 01/01/18 01:48 68 14 95 BiPAP/CPAP 50 12/31/17 23:55 BiPAP 12/31/17 23:50 37.0 65 18 104/66 (79) 97 CPAP 12/31/17 22:01 66 95 50 12/31/17 19:17 68 14 95 Nasal Cannula 5.0 12/31/17 15:58 36.9 67 18 123/67 (85) 91 Nasal Cannula 5.0 Physical Exam General Appearance: no apparent distress, + obese ENT: pharynx normal Neck: + JVD (to the jaw) Respiratory/Chest: lungs clear, no respiratory distress, no accessory muscle use, + pertinent finding (no rales or wheezing) Cardiovascular: regular rate, rhythm, no gallop, no murmur Abdomen: normal bowel sounds, non tender, soft, no organomegaly Extremities: + pedal edema (1-2+ b/l ) Neurologic/Psychiatric: alert, oriented x 3 Comments: musculo - right shoulder - full passive ROM without any tenderness; no tenderness with palpation of the subacromial bursa Laboratory Results Last 24 Hours Test 12/31/17 16:32 12/31/17 20:03 01/01/18 05:39 01/01/18 07:29 Bedside Glucose 119 mg/dl 132 mg/dl 90 mg/dl White Blood Count 6.42 K/uL Red Blood Count 4.39 M/uL Hemoglobin 12.4 g/dL Hematocrit 44.1 % Mean Corpuscular Volume 100.5 fL Mean Corpuscular Hemoglobin 28.2 pg Mean Corpuscular Hemoglobin Concent 28.1 g/dl Platelet Count 149 K/uL Mean Platelet Volume 12.2 fL Neutrophils (%) (Auto) 66.7 % Lymphocytes (%) (Auto) 21.2 % Monocytes (%) (Auto) 11.4 % Eosinophils (%) (Auto) 0.2 % Basophils (%) (Auto) 0.2 % Neutrophils # (Auto) 4.29 K/uL Lymphocytes # (Auto) 1.36 K/uL Monocytes # (Auto) 0.73 K/uL Eosinophils # (Auto) 0.01 K/uL Basophils # (Auto) 0.01 K/uL RDW Standard Deviation 55.1 fL RDW Coefficient of Variation 15.0 % Immature Granulocyte % (Auto) 0.3 % Immature Granulocyte # (Auto) 0.02 K/uL Sodium Level 140 mmol/L Potassium Level 3.5 mmol/L Chloride Level 89 mmol/L Carbon Dioxide Level 50 mmol/L Anion Gap 1.0 mmol/L Blood Urea Nitrogen 24 mg/dl Creatinine 0.59 mg/dl Est Creatinine Clear Calc Drug Dose 84.3 ml/min Estimated GFR () 113.1 Estimated GFR (Non- 97.5 BUN/Creatinine Ratio 41.5 Random Glucose 85 mg/dl Calcium Level 8.8 mg/dl Phosphorus Level 5.2 mg/dl Magnesium Level 2.4 mg/dl Total Bilirubin 0.5 mg/dl Direct Bilirubin 0.1 mg/dl Aspartate Amino Transf (AST/SGOT) 29 U/L Alanine Aminotransferase (ALT/SGPT) 99 U/L Alkaline Phosphatase 26 U/L Total Protein 6.1 gm/dl Albumin 3.0 gm/dl Test 01/01/18 11:20 Bedside Glucose 105 mg/dl Assessment and Plan Ms. Torres is a 62 y/o female with PMHx of T2DM, chronic hypercarbic/hypoxic respiratory failure on home O2, HTN, and morbid obesity with BMI 53: 1. Acute on Chronic hypercarbic and hypoxic respiratory failure - acute component 2nd to acute bronchitis? Acute CHF? other? Nothing definitive to substantiate dx of COPD or chronic CHF, however. Her chronic respiratory failure is likely due to MARIANA/OHS. Will need to complete a formal sleep study after discharge. Continue NC O2 during the day and BIPAP at HS/naps. After discharge will continue Trilogy with the following settings - AVAPS-AE with auto breath rate of 12, inspiratory time 1 second, pressure support at minimum of 10 and maximum of 18 with EPAP of 5 during sleep and as needed during the daytime. Cont prednisone taper. Cont levaquin, day #5/7 of such. Cont nebs. 2. Morbid obesity with BMI of 53 - will need outpatient follow-up for this. 3. ?CAD - obtain from [facility] her cath report (cath done in the last 1-2 years). 4. T2DM - controlled with metformin, a1c 5.9%. 5. macrocytosis - b12/folate both normal; chest TSH in am. 6. e.coli UTI - finish levaquin course, day #5/7 of such. 7. b/l LE edema - could be side effect from cardizem. Could be venous insufficiency or dependent. Could be DVT, thyroid disease, etc. Check venous dopplers, r/o DVT. Check TSH in am. Continue lasix. 8. metabolic encephalopathy - resolved; was 2nd to severe hypercarbia. dispo - [facility] vs SNF for rehab son updated extensively at bedside Continued [facility] stay due to: ambulation difficulties Discharge planning: uncertain
--- NOTE | 2018-01-01 16:36 | DIAGNOSTIC IMAGING REPORT ---
VENOUS DOPPLER LWR EXT BILA HISTORY: Pain. Edema. LE edema; eval for DVT COMPARISON STUDY: None. FINDINGS: There is normal compressibility, flow, and augmentation within the bilateral lower extremity deep venous systems. IMPRESSION: No DVT within the right or left lower extremity. The above report was generated using voice recognition software. It may contain grammatical, syntax or spelling errors. Electronically signed by: Jony Negro M.D. 01/01/2018 4:35 PM Dictated Date/Time: 01/01/2018 4:35 PM
[2018-01-01] MEDS: LEVOFLOXACIN 500 MG TAB PO SCH (17:55)
[2018-01-02] MEDS: ALBUT/IPRATROP 3MG/0.5MG NEB 3 ML VIAL NEB SCH ×3 (01:53→14:30)
[2018-01-02 01:54] VITALS: PULSE 68; O2SAT 98
[2018-01-02 01:55] VITALS: PULSE 68; O2SAT 98
--- NOTE | 2018-01-02 04:49 | Progress Note ---
Post ICU Progress Note Date & Time Jan 02, 2018 at 04:46 Vital Signs Vital Signs Past 12 Hours Date Time Temp Pulse Resp B/P (MAP) Pulse Ox O2 Delivery O2 Flow Rate FiO2 01/02/18 01:55 68 13 98 BiPAP/CPAP 4.0 50 01/02/18 01:54 68 98 50 01/02/18 00:00 BiPAP 01/01/18 23:06 36.7 71 18 153/74 (100) 92 Nasal Cannula 4.0 01/01/18 23:00 67 96 50 01/01/18 20:42 66 16 96 Nasal Cannula 4.0 Notes Mental Status: see Notes Nausea / Vomiting: adequately controlled Pain: adequately controlled Airway Patency, RR, SpO2: stable & adequate BP & HR: stable & adequate Patient is a 62-year-old female who initially was admitted to the ICU with acute on chronic hypoxemic respiratory failure with hypercapnia. Thankfully, the patient recovered with noninvasive ventilatory techniques alone. She did have episodes of apnea throughout the first night requiring increasing positive pressure and FiO2. Eventually, the patient did clear her CO2 and returned to her baseline. She was downgraded from ICU status and has continued to progress nicely. On evaluation, the patient is resting comfortably with BiPAP in place. She is sleeping. I did not awaken the patient to participate in conversation at this point. Consider outpatient follow up in 1 to 2 weeks with: Pulm, PCP Repeat imaging needed: None at this time. CXR for any changes in ventilation/ oxygenation Follow up cultures: None Reviewed progress notes, labs, and inpatient medication list Continue current management Additional recommendations: Continue w/ current BiPAP settings AT LEAST overnight. Consider using PRN for naps, etc. Thank you for allowing us to participate in the care of this patient. At this time, Critical Care Services will sign off on this case. Please feel free to reconsult as needed. Consults & Procedures Consultants: Isaias Honeycutt
[2018-01-02 07:15] VITALS: PULSE 62; O2SAT 95
[2018-01-02] MEDS: ENOXAPARIN 30 MG/0.3 ML SYR SQ SCH (07:26)
[2018-01-02] MEDS: ACETAMINOPHEN 325 MG TAB PO PRN ×2 (07:27→14:55)
[2018-01-02] MEDS: ASPIRIN 81 MG ECTAB PO SCH (07:27)
[2018-01-02] MEDS: FUROSEMIDE 40 MG TAB PO SCH (07:28)
[2018-01-02] MEDS: DILTIAZEM HCL 180 MG ER CAP PO SCH (07:28)
[2018-01-02 07:32] LABS: CREATININE 0.69 mg/dl (0.60-1.20)
[2018-01-02] MEDS: INSULIN ASPART 100 UNITS/ML 3 ML PEN SC SCH ×3 (07:55→17:48)
--- NOTE | 2018-01-02 12:15 | Pharmacy Progress Note ---
Glycemic: Assessment & Plan Date of Service Jan 02, 2018. Assessment & Plan The patient is currently receiving 17 units of insulin per day. BSGs ranging 86 - 121 mg/dl over the past 24hrs. * Basal insulin: No basal coverage. There is enough data to support that Ms. Torres doesn't require basal coverage, low A1C? * Correctional Insulin: Novolog Correction per scale ACHS Goal Range: Low 110 mg/dL - High 140 mg/dL Correction Factor: 25 mg/dL/unit * Prandial insulin: Per carb ratio of 1 unit per 8 grams CHO consumed * If steroids continue to be tapered will possibly loosen CF/CR on 01/03/18 BSGs continue to improve, no changes needed to inpatient regimen at this time. Pharmacy will continue to monitor patient daily and write orders per [facility] inpatient glycemic control protocol. Thanks. * Please note that the plan above was derived based on current level of insulin resistance and hospital stress. These recommendations are appropriate for inpatient admission only. Plan of care upon discharge will need to be reassessed to avoid potential outpatient hypo/hyperglycemia.
[2018-01-02] MEDS ORDERED: POTASSIUM CHLORIDE 20 MEQ TABCR PO ONE (14:30)
[2018-01-02] MEDS ORDERED: NAPHAZOLIN/PHENIRAMIN OPH SOLN 75 DROPS/5 ML BTL OP PRN (14:45)
[2018-01-02] MEDS ORDERED: IPRA1AER2 INH (14:55)
[2018-01-02] MEDS ORDERED: IPRASOL4 NEB (14:55)
[2018-01-02] MEDS ORDERED: LVQ500 PO (14:55)
[2018-01-02] MEDS ORDERED: PRED10TA PO (14:55)
[2018-01-02] MEDS ORDERED: NPHA OP (14:55)
[2018-01-02] MEDS ORDERED: ASPI-435 PO (14:56)
[2018-01-02] MEDS ORDERED: MCRK20 PO (14:57)
--- NOTE | 2018-01-02 15:09 | Discharge Instructions ---
Discharge Instructions Date of Service Jan 02, 2018. Admission Reason for Admission: Acute And Chronic Respiratory Failure W/ Hypoxia Discharge Discharge Diagnosis / Problem: acute/chronic hypercarbic/hypoxic respiratory failure Discharge Goals Goal(s): Learn about illness, Diagnostic testing, Therapeutic intervention Activity Recommendations Activity Level: Assistance Required Therapies: Physical Therapy, Occupational Therapy . Additional Information Patient informed of condition: Yes Advance Directives: No DNR: No Level of Care: Acute Rehab Communicable Disease: Yes (MRSA carriage) Prognosis: Stable Oxygen at (LPM): 3 liters continuously [place] Catheter: No Instructions / Follow-Up Instructions / Follow-Up The patient is new to the [facility] having just moved from [place], [place]. She will need the following upon release from [facility] - 1. follow-up with [facility] within 1 week of discharge from [facility] - any provider * she will need formal PFTs and possibly a repeat sleep study 2. follow-up with a new PCP within the [facility] also within 1 week of discharge She will need a BMP and Magnesium level within 3 days of admission to [facility]. Current Hospital Diet Patient's current hospital diet: AHA Diet (Heart Healthy), Diabetes Type 2 Diet Discharge Diet Recommended Diet: AHA Diet (Heart Healthy), Diabetes Type 2 Diet Fluid Restriction: 1800 ml (7 cups) Procedures Procedures Performed: 1. doppler study both legs negative for DVT 2. echocardiogram - was severely limited in views/quality - no gross abnormalities with the limited views obtained. 3. head CT negative for stroke. Pending Studies Studies pending at discharge: no Physician Orders On Transfer Vital Signs: per [facility] routine along with pulse ox checks fingerstick blood sugar checks before meals and at bedtime Weigh: daily on standing scale report any weight gain of more than 2-3 pounds over 1-2 days to medical psychotherapist Additional Orders: Trilogy - use at bedtime as well as with daytime naps. Settings - AVAPS-AE with auto breath rate of 12, inspiratory time 1 second, pressure support at minimum of 10 and maximum of 18 with EPAP of 5. Blend 50% FiO2 while on Trilogy. POLST Discussion: Not Applicable Laboratory Results Hemoglobin A1c Test 12/29/17 04:48 Range/Units Estimated Average Glucose 123 mg/dl Hemoglobin A1c 5.9 H 4.5-5.6 % Medical Emergencies . Who to Call and When: Medical Emergencies: If at any time you feel your situation is an emergency, please call 911 immediately. . Non-Emergent Contact Non-Emergency issues call your: Primary Care Provider, Home Weatherizing Worker Call Non-Emergent contact if: temperature is above 100.5, you have any medication questions . . "Provider Documentation" section prepared by Nick Casillas. . Core Measure Problem Core Measures: None
[2018-01-02] MEDS ORDERED: ADVIN25/60 INH (15:11)
[2018-01-02 15:31] VITALS: BP 124/67; PULSE 70; TEMP 37.1; O2SAT 91
[2018-01-02 15:51] VITALS: BP 124/67; PULSE 70; TEMP 37.1; O2SAT 91
--- NOTE | 2018-01-02 17:09 | Discharge Summary ---
Discharge Summary Date of Service Jan 02, 2018. Discharge Summary Admission Date: Dec 28, 2017 at 16:43 Discharge Date: Jan 02, 2018 Discharge Disposition: Rehab ([facility] ) Principal Diagnosis: acute/chronic hypercarbic/hypoxic respiratory failure Problems/Secondary Diagnoses: 1. morbid obesity with BMI 52 2. MARIANA 3. suspected obesity-hypoventilation syndrome 4. suspected COPD 5. tobacco dependence 6. abnormal LFTs - improving/nearly resolved 7. metabolic encephalopathy - resolved 8. question of chronic diastolic CHF 9. T2DM 10. HTN 11. e coli UTI - resolving 12. chronic LE edema 13. ?CAD - had heart catheterization at [facility] 2015 or 2017 - unknown results Procedures: 1. echocardiogram - -- Conclusions -- * SEVERELY LIMITED STUDY DESPITE USE OF DEFINITY CONTRAST * 1. LV size appears grossly normal. * 2. LV function appears grossly normal. Cannot exclude regional wall motion abnormalities. * 3. Valves not well visualized. No gross regurgitant/stenotic lesions. 2. CT head - negative for acute stroke or ICH. 3. b/l lower extremity venous dopplers - negative for DVT. 4. right shoulder x-rays - IMPRESSION: No fracture or dislocation within the right shoulder. Supraspinatus calcific tendinitis. Consultations: critical care/pulmonary Medication Reconciliation New Medications: Fluticasone Prop/Salmeterol (Advair Diskus 250/50 60 Dose) 1 Ea Aerp 1 PUFF INH BID, #1 INHALER 2 Refills rinse mouth with water after using Potassium Chloride (Klor-Con M20) 20 Meq Tabcr 20 MEQ PO BID, #60 TABS 2 Refills Prednisone (Prednisone) 10 Mg Tab 10 MG PO DIRECTED, #22 TAB 0 Refills start 01/03/18: take 5 tabs day 1, 4 tabs days 2/3, 3 tabs days 4/5, 2 tabs day 6, 1 tab day 7, then stop. Ipratropium-Albuterol (Duoneb) 3 Ml Nebu 3 ML NEB Q4H PRN for cough/wheeze, #1 BOX 1 Refill Levofloxacin (Levofloxacin) 500 Mg Tab 500 MG PO DAILY@1800 for 2 Days, #2 TAB 0 Refills Naphazoline/Pheniramine (Naphcon-A) 15 Ml Soln 1 DROPS OP Q4H PRN for itchy eyes, #1 BTL 0 Refills Changed Medications: Ipratropium-Albuterol (Combivent Respimat) 1 Aer Aer 1 PUFFS INH Q6H, #1 INH 1 Refill (Changed from: UD; Refills: ) Continued Medications: Aspirin (Aspirin) 81 Mg Tab 81 MG PO DAILY for 90 Days, #90 TAB 3 Refills Diltiazem HCl (Diltiazem HCl ER) 180 Mg Caper 180 MG PO DAILY Furosemide (Lasix) 40 Mg Tab 40 MG PO BID, TAB Metformin Hcl (Glucophage) 500 Mg Tab 500 MG PO BID, TAB Discharge Exam Physical Exam: General Appearance: no apparent distress, + obese Eyes: + pertinent finding (scant discharge from left eye; no conjunctivitis b/l) ENT: pharynx normal Neck: + pertinent finding (difficult to assess for JVD due to neck size) Respiratory/Chest: lungs clear, no respiratory distress, no accessory muscle use, + decreased breath sounds (bases) Cardiovascular: regular rate, rhythm, no gallop, no murmur, normal peripheral pulses Abdomen / GI: normal bowel sounds, non tender, soft, no organomegaly Extremities: + swelling (1-2+ b/l ) Neurologic/Psychiatric: alert, oriented x 3 Hospital Course HISTORY OF PRESENT ILLNESS: Ms. Torres is a 62 y/o female with PMHx of T2DM, chronic hypercarbic/hypoxic respiratory failure on home O2, HTN, question of COPD, and morbid obesity with BMI 53 who presented to the ED by BLS for a fall secondary to SOB. HPI was solely obtained from the ED record and ED provider due to the patient being unable to provide history. She had had no previous admissions and there were no outpatient notes in [employer]. It appears that the patient presented by BLS with c/o R shoulder and knee pain after a fall. Fall was reported to be caused by her SOB. She has a history of COPD and utilizes 2.5 L NC continuously. Upon arrival to the ED she was 80% with 4 L NC. There was a report of tremors, confusion, and lethargy prior to arrival. At the time of the hospitalist admission interview the patient was lethargic. Initial ABG showed a pCO2 of 135 and pH of 7.22. She was begun on BIPAP immediately and subsequently admitted to the ICU. HOSPITAL COURSE: 1. Acute on Chronic hypercarbic and hypoxic respiratory failure - the patient' s acute component was thought 2nd to either acute bronchitis or, if she has underlying COPD, a COPD exacerbation. There was low suspicion that her presentation was due to acute CHF. She was treated with BIPAP, IV steroids, and nebs. The patient was fortunate as she never required intubation/ mechanical ventilation despite the severe hypercarbia. She made gradual improvement in her mentation, pulmonary symptoms, as well as her pCO2 (her pCO2 improved into the 80s with normal pH). She was seen by critical care/pulmonary and it was felt her chronic respiratory failure was likely due to MARIANA/OHS. She was continued on NC O2 during the day and weaned to 3 liters continuously. BIPAP at HS/naps was continued and she reported feeling significantly better - the best she had felt in months-years, in fact. After discharge she will continue on Trilogy non-invasive ventilation with the following settings - AVAPS-AE with auto breath rate of 12, inspiratory time 1 second, pressure support at minimum of 10 and maximum of 18 with EPAP of 5. O2 should be blended in with night-time Trilogy (50% FiO2 had been used while hospitalized). The patient reported she completed a sleep study in the [place], [place] area but never had the CPAP/BIPAP titration portion. She will need a referral to [facility] for follow-up of her MARIANA/OHS and possibly a repeat sleep study. She will complete a prednisone taper as well as 2 more days of oral levaquin following discharge. Outpatient PFTs should also be repeated. 2. Morbid obesity with BMI of 53 - will need outpatient follow-up for this. 3. ?CAD - at time of discharge we were awaiting her cath report from [facility] (cath done in the last 1-2 years). 4. T2DM - controlled with metformin, a1c 5.9%. 5. macrocytosis - b12/folate/TSH all normal. Routine CBC recommended to ensure stability. 6. e.coli UTI - finish levaquin course; she will need 2 more days of oral levaquin to complete a 7-day course. 7. b/l LE edema - could be side effect from cardizem. Could be venous insufficiency or dependent edema. Dopplers were negative for DVT. TSH was normal. She did not appear to be in active/acute CHF. She apparently has had LE edema for years. She will continue on lasix 40mg BID as previous. 8. suspected COPD - see #1 above. Outpatient PFTs recommended. She will continue on inhalers (combivent QID, advair BID) while awaiting additional outpatient work-up. For possible COPD exacerbation she will finish a prednisone taper. 9. abnormal LFTs - at presentation she mad mildly elevated ast & alt. Both improved and nearly normalized while here. Routine LFTs should be obtained as an outpatient. Total Time Spent: Greater than 30 minutes This includes examination of the patient, discharge planning, medication reconciliation, and communication with other providers. Discharge Instructions Please refer to the electronic Patient Visit Report (Discharge Instructions) for additional information. Follow-Up 1. medical care manager of [facility] within 48 hours 2. needs to establish with [facility] within 1 week of discharge from [facility] 3. needs to establish with new PCP within 1 week of discharge from [facility] 4. CMP and magnesium - recheck within 3 days of admission to [facility] Additional Copies To Kee Varner M.D.; [facility]
== END 2018-01-02 18:40 | DRG 189 ==
LOC: EDBD 13:51 → C.EDC 13:53 → UNDOADMIN 16:43 → C.MSICU 16:43 → ENRESERV 16:57 → C.MS2W 12-30 20:11 → C.MSICU 12-30 20:11
PROVIDERS: ADMIT Internal Medicine; ATTEND Internal Medicine
DX: J96.21 Acute and chronic respiratory failure with hypoxia (principal); G93.41 Metabolic encephalopathy; J44.1 Chronic obstructive pulmonary disease with (acute) exacerbation; E87.2 Acidosis; E66.2 Morbid (severe) obesity with alveolar hypoventilation; I50.32 Chronic diastolic (congestive) heart failure; N39.0 Urinary tract infection, site not specified; Z68.43 Body mass index [BMI] 50.0-59.9, adult; F17.200 Nicotine dependence, unspecified, uncomplicated; Z99.81 Dependence on supplemental oxygen; Z88.1 Allergy status to other antibiotic agents; E11.9 Type 2 diabetes mellitus without complications; J96.22 Acute and chronic respiratory failure with hypercapnia; E66.01 Morbid (severe) obesity due to excess calories; M25.511 Pain in right shoulder; I11.0 Hypertensive heart disease with heart failure; A49.8 Other bacterial infections of unspecified site; W19.XXXA Unspecified fall, initial encounter

== ENCOUNTER → 2018-01-30 | Outpatient (CLI) | payer OTHER ==
[~2018-01-30] MED LIST: ADVIN25/60 INH; ASPI1TAB83 PO; DLCSR180 PO; FRS/40 PO; GLC/500 PO; IPRA1AER2 INH; IPRASOL4 NEB; LVQ500 PO; MCRK20 PO; NPHA OP; PRED10TA PO
--- NOTE | 2018-01-30 15:33 | DIAGNOSTIC IMAGING REPORT ---
CT LUNG SCREENING, LOW DOSE WITH COMPUTER-AIDED DETECTION (CAD) CLINICAL HISTORY: FORMER SMOKER COMPARISON STUDY: No previous studies for comparison. CT DOSE: 67.94 mGycm TECHNIQUE: Low-dose helical CT was acquired without intravenous contrast from lung apices to bases and reconstructed at 2.5 mm every 2 mm. CAD was utilized for this study. A dose lowering technique was utilized adhering to the principles of ALARA. FINDINGS: The study is limited from a technical standpoint due to the quantum mottle artifact. Specifically, sensitivity for subsolid nodules is severely diminished. No definite pulmonary nodules identified. No pleural effusions. No pneumothorax. Scattered bibasilar linear densities favor subsegmental atelectasis or scarring. The central airways appear patent. No pleural effusions. No pneumothorax. No mediastinal or hilar lymphadenopathy. Normal caliber thoracic aorta. The heart is normal in size. The upper abdominal structures are essentially nondiagnostic. Visualized osseous structures are also essentially nondiagnostic. IMPRESSION: The study is limited from a technical standpoint at described above. However, no definite pulmonary nodules identified. CAD FINDINGS: Overall Lung RADS Category: 1 Lung RADS Management Recommendation: Continue annual lung cancer screening. Lung RADS Follow Up Date: 2019-01-30 Lung RADS Nodule ID: Electronically signed by: Aguilar Metz M.D. 01/30/2018 3:32 PM Dictated Date/Time: 01/30/2018 3:28 PM
== END | disposition home or self-care (01) ==
LOC: C.CTS 14:46
PROVIDERS: ATTEND Physician Assistant
DX: Z12.2 Encounter for screening for malignant neoplasm of respiratory organs (principal); Z87.891 Personal history of nicotine dependence